=== PATIENT | female | born 1985 | race Caucasian/White ===

== ENCOUNTER → 2016-07-12 | Outpatient (CLI) | payer OTHER ==
[~2016-07-12] MED LIST: ASPIRIN 81M81 MG/TA2 PO; HUMALOG100 U/ML SC; LANTUS100 U/ML; LANTUS100 U/ML SQ; MAG-OX 400400 MG/TAB PO; NOVLOG SQ; PRINIVIL10 MG PO; PRINIVIL2.5 MG PO; TOPROL XL 25MG25 MG PO; TOPROL XL 50MG50 MG PO
== END ==
LOC: ZLAB.FHCC 11:45
DX: L65.9 Nonscarring hair loss, unspecified (principal)

== ENCOUNTER → 2016-08-30 | Outpatient (CLI) | payer SELFPAY ==
[2016-08-30 12:02] LABS: HEMATOCRIT 43.5 % (37.0-47.0); HEMOGLOBIN 14.9 g/dl (12.5-16.0)
[2016-08-30 12:15] LABS: ADJUSTED CALCIUM 9.2 mg/dL (8.4-10.2); ALBUMIN 4.1 gm/dL (3.5-5.0); BILIRUBIN,TOTAL 0.8 mg/dL (0.0-1.0); CALCIUM 9.3 mg/dL (8.4-10.2); CREATININE, serum 0.62 mg/dL (0.52-1.25); TOTAL PROTEIN 7.1 gm/dL (6.4-8.2)
== END ==
LOC: COL.LAB 11:03
DX: E10.9 Type 1 diabetes mellitus without complications (principal)

== ENCOUNTER 2017-04-11 10:16 | Emergency (ER) | payer BC ==
[~2017-04-11] VITALS: Ht 165.1 cm; Wt 56.8 kg
[~2017-04-11 10:16] MED LIST changes: +DEPO-PROVE150 MG/1 M IM; +LEVEMIR100 U/ML SQ
[2017-04-11 10:19] VITALS: TEMP 98.3
[2017-04-11 10:53] LABS: BASO # 0.1 (0.0-0.2); BASO % 0.4 % (0.0-2.0); EOS # 0.1 (0.0-0.7); EOS % 0.9 % (0-4.0); GRAN # 10.5 (1.4-6.5); GRAN % 76.6 % (42.2-75.2); LYMPH # 2.1 (1.2-3.4); LYMPH % 15.1 % (20.0-51.0); MEAN CELL VOLUME 88 fl (80.0-100.0); MEAN CORPUSCULAR HGB CONC 33 g/dl (33.0-37.0); MEAN PLATELET VOLUME 9.8 fl (7.4-10.4); MONO # 0.9 (0.1-0.6); MONO % 6.5 % (1.7-9.3); PLATELET COUNT 339 K/mm3 (130-400); RED BLOOD COUNT 3.76 M/mm3 (4.10-5.30); WHITE BLOOD COUNT 13.8 K/mm3 (4.8-10.8)
[2017-04-11 10:56] LABS: HEMATOCRIT 32.9 % (37.0-47.0); HEMOGLOBIN 10.8 g/dl (12.5-16.0); MEAN CORPUSCULAR HEMOGLOBIN 29 pg (27.0-31.0)
[2017-04-11 11:02] LABS: ADJUSTED CALCIUM 9.2 mg/dL (8.4-10.2); ALBUMIN 4.1 gm/dL (3.5-5.0); BILIRUBIN,TOTAL 0.5 mg/dL (0.0-1.0); CALCIUM 9.3 mg/dL (8.4-10.2); CREATININE, serum 0.6 mg/dL (0.52-1.25); POTASSIUM 3.1 mmol/L (3.4-5.0)
[2017-04-11] MEDS ORDERED: ALBUTEROL0.83 MG/ML IH (11:24)
[2017-04-11] MEDS ORDERED: NOXAFIL PO (11:24)
[2017-04-11 15:28] VITALS: BP 180/101; PULSE 95
== END 2017-04-11 16:17 | disposition home or self-care (01) ==
LOC: COL.ER 10:16
PROVIDERS: Emergency Medicine
DX: Z43.0 Encounter for attention to tracheostomy (principal); R06.02 Shortness of breath; E10.9 Type 1 diabetes mellitus without complications
CPT/HCPCS: J1100; J7030

== ENCOUNTER → 2017-06-27 | Outpatient (CLI) | payer BC ==
[~2017-06-27] MED LIST changes: +ALBUTEROL0.83 MG/ML IH; +NOXAFIL PO
== END ==
LOC: COL.RAD 11:51
DX: R14.0 Abdominal distension (gaseous) (principal); R16.1 Splenomegaly, not elsewhere classified; R93.8 Abnormal findings on diagnostic imaging of other specified body structures

== ENCOUNTER → 2017-07-04 | Outpatient (CLI) | payer BC | LOC: COL.RAD 05:59 | DX: R14.0 Abdominal distension (gaseous) (principal); R10.9 Unspecified abdominal pain; R11.2 Nausea with vomiting, unspecified | CPT/HCPCS: A9541 ==

== ENCOUNTER 2017-07-07 14:28 | Emergency (ER) | payer BC ==
[~2017-07-07] VITALS: Ht 165.1 cm; Wt 62.7 kg
[2017-07-07 14:30] VITALS: BP 103/72
[2017-07-07] MEDS ORDERED: MONODOX100 PO (14:51)
[2017-07-07] MEDS ORDERED: PRIL40 PO (14:52)
[2017-07-07] MEDS ORDERED: VALU-DRYL ALLER25 MG PO (14:52)
[2017-07-07] MEDS ORDERED: LOPRESSOR 550 MG/TAB PO (14:52)
[2017-07-07] MEDS ORDERED: NOXAFIL PO (14:54)
[2017-07-07 15:09] LABS: BASO # 0.1 (0.0-0.2); BASO % 0.3 % (0.0-2.0); EOS % 0.1 % (0-4.0); GRAN # 14.5 (1.4-6.5); GRAN % 82.3 % (42.2-75.2); LYMPH # 1.9 (1.2-3.4); LYMPH % 10.5 % (20.0-51.0); MEAN CELL VOLUME 82 fl (80.0-100.0); MEAN CORPUSCULAR HGB CONC 32 g/dl (33.0-37.0); MEAN PLATELET VOLUME 9.5 fl (7.4-10.4); MONO # 1.1 (0.1-0.6); MONO % 6.2 % (1.7-9.3); PLATELET COUNT 369 K/mm3 (130-400); RED BLOOD COUNT 4.36 M/mm3 (4.10-5.30); REDCELL DISTRIBUTION WIDTH-CV 14.2 % (11.5-14.5)
[2017-07-07 15:14] LABS: ALBUMIN 3.7 gm/dL (3.5-5.0); BILIRUBIN,TOTAL 0.5 mg/dL (0.0-1.0); CALCIUM 9.4 mg/dL (8.4-10.2); CREATININE, serum 0.7 mg/dL (0.52-1.25); POTASSIUM 4.5 mmol/L (3.4-5.0); TOTAL PROTEIN 7.3 gm/dL (6.4-8.2)
[2017-07-07 15:21] LABS: HEMATOCRIT 35.8 % (37.0-47.0); HEMOGLOBIN 11.3 g/dl (12.5-16.0); MEAN CORPUSCULAR HEMOGLOBIN 26 pg (27.0-31.0)
[2017-07-07 18:01] VITALS: PULSE 98
== END 2017-07-07 18:00 | disposition short-term general hospital (02) ==
LOC: COL.ER 14:28
PROVIDERS: Family Medicine
DX: J18.1 Lobar pneumonia, unspecified organism (principal); J96.00 Acute respiratory failure, unspecified whether with hypoxia or hypercapnia; Z79.4 Long term (current) use of insulin
CPT/HCPCS: J1100; J1956; J2543; J7030

== ENCOUNTER 2017-11-05 08:39 | Inpatient (IN) | payer BC ==
[~2017-11-05] VITALS: Ht 165.1 cm; Wt 57.7 kg
[2017-11-05] VITALS (476 sets, daily range): BP systolic 142–179; BP diastolic 86–109; PULSE 97–111; TEMP 98.2–98.9; O2SAT 81–100
[~2017-11-05 08:39] MED LIST changes: +LOPRESSOR 550 MG/TAB PO; +MONODOX100 PO; +PRIL40 PO; +VALU-DRYL ALLER25 MG PO
[2017-11-05 09:00] LABS: HEMATOCRIT 41.5 % (37.0-47.0); MEAN CELL VOLUME 82 fl (80.0-100.0); MEAN CORPUSCULAR HEMOGLOBIN 28 pg (27.0-31.0); MEAN CORPUSCULAR HGB CONC 34 g/dl (33.0-37.0); MEAN PLATELET VOLUME 9.5 fl (7.4-10.4); PLATELET COUNT 345 K/mm3 (130-400); RED BLOOD COUNT 5.04 M/mm3 (4.10-5.30); REDCELL DISTRIBUTION WIDTH-CV 13.6 % (11.5-14.5)
[2017-11-05 09:08] LABS: ALANINE AMINOTRANSFERASE 17 U/L (9-52); ALKALINE PHOSPHATASE 136 U/L (50-136); ANION GAP 26 mmol/L (7-16); AST,SGOT 21 U/L (15-37); BILIRUBIN,TOTAL 0.8 mg/dL (0.0-1.0); BLOOD UREA NITROGEN 43 mg/dL (7-17); CALCIUM 10.1 mg/dL (8.4-10.2); CARBON DIOXIDE 23 mmol/L (22-30); CREATININE, serum 0.89 mg/dL (0.52-1.25); POTASSIUM 4.2 mmol/L (3.4-5.0); SODIUM 131 mmol/L (137-145); TOTAL PROTEIN 8.4 gm/dL (6.4-8.2)
[2017-11-05 09:20] LABS: CHLORIDE 82 mmol/L (98-107); GLUCOSE 472 mg/dL (74-106)
[2017-11-05 09:31] LABS: ACETONE,SERUM LARGE
[2017-11-05 10:58] LABS: BAND 12 % (0-10); LYMPHOCYTE 12 % (20.0-51.0); NEUTROPHILS 76 % (42.0-75.2); PLATELET ESTIMATE NORMAL (NORMAL)
[2017-11-05 13:04] LABS: MAGNESIUM 2.4 mg/dL (1.6-2.3); PHOSPHOROUS 4.9 mg/dL (2.5-4.5)
[2017-11-05] MEDS ORDERED: PRINIVIL5 MG PO (13:07)
[2017-11-05 14:58] LABS: COLLECTION METHOD CLEAN CATCH
[2017-11-05 15:08] LABS: MUCOUS Present /lpf; PH 5 (5-8); SQUAMOUS EPITHELIAL 0-2 /hpf; URINE APPEARANCE Clear; URINE BACTERIA Rare /hpf; URINE BILIRUBIN Negative (NEGATIVE); URINE BLOOD Negative (NEGATIVE); URINE COLOR Yellow; URINE GLUCOSE 3+ (NEGATIVE); URINE KETONE 2+ (NEGATIVE); URINE LEUKOCYTE ESTERASE Negative (NEGATIVE); URINE NITRATE Negative (NEGATIVE); URINE PROTEIN(semi-quant) 2+ (NEGATIVE); URINE RBC 0-2 /hpf; URINE UROBILINOGEN Negative (NEGATIVE)
[2017-11-05 15:20] LABS: TRICYCLIC ANTIDEPRESS URINE NEGATIVE
[2017-11-05 16:30] LABS: ALBUMIN 4.1 gm/dL (3.5-5.0); BILIRUBIN,TOTAL 0.6 mg/dL (0.0-1.0); C-REACTIVE PROTEIN 1.4 mg/dL (0.0-0.9); CALCIUM 9.2 mg/dL (8.4-10.2); CREATININE, serum 0.67 mg/dL (0.52-1.25); POTASSIUM 3.5 mmol/L (3.4-5.0)
[2017-11-05 19:07] LABS: CALCIUM 8.9 mg/dL (8.4-10.2); CREATININE, serum 0.58 mg/dL (0.52-1.25); POTASSIUM 3.5 mmol/L (3.4-5.0)
[2017-11-05 20:28] LABS: ALCOHOL(ethanol),MEDICAL < 10 mg/dL
[2017-11-05 20:35] LABS: CREATININE, serum 0.61 mg/dL (0.52-1.25)
[2017-11-06] VITALS (846 sets, daily range): BP systolic 150–184; BP diastolic 88–105; PULSE 90–99; TEMP 97.9–98.9; O2SAT 95–100
[2017-11-06 00:38] LABS: CALCIUM 8.8 mg/dL (8.4-10.2); CREATININE, serum 0.57 mg/dL (0.52-1.25); POTASSIUM 3.8 mmol/L (3.4-5.0)
[2017-11-06 02:48] LABS: CALCIUM 8.9 mg/dL (8.4-10.2); CREATININE, serum 0.54 mg/dL (0.52-1.25); POTASSIUM 3.4 mmol/L (3.4-5.0)
[2017-11-06 05:08] LABS: BASO % 0.2 % (0.0-2.0); GRAN # 12.3 (1.4-6.5); GRAN % 84.5 % (42.2-75.2); HEMOGLOBIN 12.5 g/dl (12.5-16.0); LYMPH # 0.9 (1.2-3.4); LYMPH % 6.2 % (20.0-51.0); MEAN CELL VOLUME 81 fl (80.0-100.0); MEAN CORPUSCULAR HEMOGLOBIN 28 pg (27.0-31.0); MEAN CORPUSCULAR HGB CONC 34 g/dl (33.0-37.0); MEAN PLATELET VOLUME 9.3 fl (7.4-10.4); MONO # 1.2 (0.1-0.6); MONO % 8.5 % (1.7-9.3); PLATELET COUNT 251 K/mm3 (130-400); RED BLOOD COUNT 4.48 M/mm3 (4.10-5.30); REDCELL DISTRIBUTION WIDTH-CV 13.2 % (11.5-14.5)
[2017-11-06 05:14] LABS: HEMATOCRIT 36.4 % (37.0-47.0)
[2017-11-06 05:17] LABS: CALCIUM 8.8 mg/dL (8.4-10.2); CREATININE, serum 0.5 mg/dL (0.52-1.25); POTASSIUM 3.4 mmol/L (3.4-5.0)
[2017-11-06 07:36] LABS: CALCIUM 8.8 mg/dL (8.4-10.2); CREATININE, serum 0.47 mg/dL (0.52-1.25); POTASSIUM 3.4 mmol/L (3.4-5.0)
[2017-11-06 09:23] LABS: CALCIUM 8.9 mg/dL (8.4-10.2); CREATININE, serum 0.45 mg/dL (0.52-1.25); POTASSIUM 3.4 mmol/L (3.4-5.0)
[2017-11-07] VITALS (434 sets, daily range): BP systolic 94–180; BP diastolic 65–114; PULSE 89–98; TEMP 97.5–97.9; O2SAT 94–100
[2017-11-07 06:03] LABS: BASO % 0.2 % (0.0-2.0); EOS % 0.4 % (0-4.0); GRAN # 6.1 (1.4-6.5); GRAN % 70.9 % (42.2-75.2); LYMPH # 1.6 (1.2-3.4); LYMPH % 18.8 % (20.0-51.0); MEAN CELL VOLUME 81 fl (80.0-100.0); MEAN CORPUSCULAR HEMOGLOBIN 27 pg (27.0-31.0); MEAN CORPUSCULAR HGB CONC 34 g/dl (33.0-37.0); MEAN PLATELET VOLUME 9.3 fl (7.4-10.4); MONO # 0.8 (0.1-0.6); MONO % 9.1 % (1.7-9.3); PLATELET COUNT 248 K/mm3 (130-400); RED BLOOD COUNT 4.41 M/mm3 (4.10-5.30); REDCELL DISTRIBUTION WIDTH-CV 12.7 % (11.5-14.5)
[2017-11-07 06:06] LABS: HEMATOCRIT 35.7 % (37.0-47.0)
[2017-11-07 06:12] LABS: CALCIUM 8.8 mg/dL (8.4-10.2); CREATININE, serum 0.43 mg/dL (0.52-1.25); POTASSIUM 3.1 mmol/L (3.4-5.0)
[2017-11-08] VITALS (561 sets, daily range): BP systolic 135–178; BP diastolic 85–103; PULSE 89–106; TEMP 97.6–98.7; O2SAT 77–100
[2017-11-08 09:09] LABS: BASO % 0.3 % (0.0-2.0); EOS % 0.5 % (0-4.0); GRAN # 5.4 (1.4-6.5); HEMOGLOBIN 12.7 g/dl (12.5-16.0); LYMPH # 1.7 (1.2-3.4); LYMPH % 22.3 % (20.0-51.0); MEAN CELL VOLUME 80 fl (80.0-100.0); MEAN CORPUSCULAR HEMOGLOBIN 28 pg (27.0-31.0); MEAN CORPUSCULAR HGB CONC 35 g/dl (33.0-37.0); MONO # 0.5 (0.1-0.6); MONO % 6.7 % (1.7-9.3); PLATELET COUNT 240 K/mm3 (130-400); RED BLOOD COUNT 4.56 M/mm3 (4.10-5.30); REDCELL DISTRIBUTION WIDTH-CV 12.6 % (11.5-14.5)
[2017-11-08 09:10] LABS: HEMATOCRIT 36.5 % (37.0-47.0)
[2017-11-08 09:20] LABS: ALBUMIN 3.6 gm/dL (3.5-5.0); BILIRUBIN UNCONJUGATED 0.3 mg/dL (0.0-1.1); BILIRUBIN,DIRECT 0.3 mg/dL (0.0-0.4); BILIRUBIN,TOTAL 0.6 mg/dL (0.0-1.0); CREATININE, serum 0.55 mg/dL (0.52-1.25); POTASSIUM 3.3 mmol/L (3.4-5.0); TOTAL PROTEIN 6.5 gm/dL (6.4-8.2)
[2017-11-09] VITALS (9 sets, daily range): BP systolic 135–220; BP diastolic 55–114; PULSE 74–106; TEMP 97–99.4
[2017-11-09 09:05] LABS: MEAN CELL VOLUME 81 fl (80.0-100.0); MEAN CORPUSCULAR HEMOGLOBIN 28 pg (27.0-31.0); MEAN CORPUSCULAR HGB CONC 34 g/dl (33.0-37.0); MEAN PLATELET VOLUME 9.7 fl (7.4-10.4); PLATELET COUNT 232 K/mm3 (130-400); RED BLOOD COUNT 4.37 M/mm3 (4.10-5.30); REDCELL DISTRIBUTION WIDTH-CV 12.8 % (11.5-14.5)
[2017-11-09 09:15] LABS: HEMATOCRIT 35.4 % (37.0-47.0)
[2017-11-09 09:22] LABS: CREATININE, serum 0.55 mg/dL (0.52-1.25); POTASSIUM 4.1 mmol/L (3.4-5.0)
[2017-11-09 10:07] LABS: BAND 4 % (0-10); LYMPHOCYTE 18 % (20.0-51.0); NEUTROPHILS 68 % (42.0-75.2); PLATELET ESTIMATE NORMAL (NORMAL)
[2017-11-09] MEDS ORDERED: AMOXICILLIN 8751 TAB PO (14:13)
[2017-11-09] MEDS ORDERED: LOPRESSOR 225 MG/TAB PO (14:14)
[2017-11-09] MEDS ORDERED: CARAFATE 1GM1 G PO (14:15)
[2017-11-09] MEDS ORDERED: PROTONIX 40MG T40 MG PO (14:15)
== END 2017-11-09 15:34 | disposition home or self-care (01) | DRG 638 ==
LOC: COL.ER 08:39 → ICU 10:57 → MEDICAL 11-08 18:57
PROVIDERS: Hospitalist; Internal Medicine Gastroenterology; Nurse Practitioner Primary Care; Physician Assistant
PROC: 0DB68ZX Excision of Stomach, Via Natural or Artificial Opening Endoscopic, Diagnostic (ICD-10-PCS; principal; 2017-11-09 07:30)
DX: E10.10 Type 1 diabetes mellitus with ketoacidosis without coma (principal); E87.1 Hypo-osmolality and hyponatremia; L03.031 Cellulitis of right toe; K29.00 Acute gastritis without bleeding; E87.6 Hypokalemia; K21.0 Gastro-esophageal reflux disease with esophagitis; K29.30 Chronic superficial gastritis without bleeding; I10 Essential (primary) hypertension; Z79.4 Long term (current) use of insulin; J39.8 Other specified diseases of upper respiratory tract; F17.210 Nicotine dependence, cigarettes, uncomplicated; B95.2 Enterococcus as the cause of diseases classified elsewhere; B95.61 Methicillin susceptible Staphylococcus aureus infection as the cause of diseases classified elsewhere
CPT/HCPCS: 99223-AI; 99233-AI; 99239; C9113; J0360; J1200; J1644; J1815; J2405; J2543; J2550; J2704; J2765; J3370; J3480; J7030; J7050; J7070

== ENCOUNTER → 2017-11-21 | Outpatient (CLI) | payer BC ==
[~2017-11-21] MED LIST changes: +AMOXICILLIN 8751 TAB PO; +CARAFATE 1GM1 G PO; +LOPRESSOR 225 MG/TAB PO; +PRINIVIL5 MG PO; +PROTONIX 40MG T40 MG PO
== END ==
LOC: COL.RAD 15:57
DX: R05 Cough (principal); Z98.890 Other specified postprocedural states

== ENCOUNTER → 2018-06-19 | Outpatient (CLI) | payer BC | LOC: COL.RAD 12:03 | DX: E10.319 Type 1 diabetes mellitus with unspecified diabetic retinopathy without macular edema (principal); Z87.01 Personal history of pneumonia (recurrent) ==

== ENCOUNTER → 2018-10-12 | Outpatient (CLI) | payer BC ==
[2018-10-12 09:35] LABS: BASO % 0.4 % (0.0-2.0); EOS # 0.1 (0.0-0.7); EOS % 1.7 % (0-4.0); GRAN # 4.6 (1.4-6.5); GRAN % 56.2 % (42.2-75.2); HEMATOCRIT 31.8 % (37.0-47.0); HEMOGLOBIN 10.3 g/dl (12.5-16.0); LYMPH # 2.7 (1.2-3.4); LYMPH % 33.8 % (20.0-51.0); MEAN CELL VOLUME 88 fl (80.0-100.0); MEAN CORPUSCULAR HEMOGLOBIN 29 pg (27.0-31.0); MEAN CORPUSCULAR HGB CONC 32 g/dl (33.0-37.0); MEAN PLATELET VOLUME 9.2 fl (7.4-10.4); MONO # 0.6 (0.1-0.6); MONO % 7.5 % (1.7-9.3); PLATELET COUNT 212 K/mm3 (130-400); RED BLOOD COUNT 3.61 M/mm3 (4.10-5.30); REDCELL DISTRIBUTION WIDTH-CV 13.1 % (11.5-14.5)
== END ==
LOC: COL.RAD 08:55
PROVIDERS: Registered Nurse
DX: S92.911A Unspecified fracture of right toe(s), initial encounter for closed fracture (principal); E10.319 Type 1 diabetes mellitus with unspecified diabetic retinopathy without macular edema

== ENCOUNTER → 2018-12-27 | Outpatient (CLI) | payer BC ==
[2018-12-27 11:11] LABS: BASO # 0.1 (0.0-0.2); BASO % 0.5 % (0.0-2.0); EOS # 0.1 (0.0-0.7); EOS % 0.5 % (0-4.0); GRAN # 7.7 (1.4-6.5); GRAN % 70.1 % (42.2-75.2); HEMOGLOBIN 10.3 g/dl (12.5-16.0); LYMPH # 2.3 (1.2-3.4); LYMPH % 21.1 % (20.0-51.0); MEAN CELL VOLUME 87 fl (80.0-100.0); MEAN CORPUSCULAR HEMOGLOBIN 28 pg (27.0-31.0); MEAN CORPUSCULAR HGB CONC 32 g/dl (33.0-37.0); MONO # 0.7 (0.1-0.6); MONO % 6.6 % (1.7-9.3); PLATELET COUNT 316 K/mm3 (130-400); RED BLOOD COUNT 3.67 M/mm3 (4.10-5.30); REDCELL DISTRIBUTION WIDTH-CV 12.7 % (11.5-14.5)
[2018-12-27 11:16] LABS: HEMATOCRIT 31.9 % (37.0-47.0)
== END ==
LOC: COL.RAD 10:29
PROVIDERS: Registered Nurse
DX: E10.319 Type 1 diabetes mellitus with unspecified diabetic retinopathy without macular edema (principal); L03.031 Cellulitis of right toe

== ENCOUNTER → 2020-03-30 | Outpatient (CLI) | payer BC ==
[~2020-03-30] MED LIST changes: +CIPRO 500MG TA500 MG PO; +NOVOLOG FLEX100 U/ML SQ
== END ==
LOC: MC.RAD 10:30
DX: N63.21 Unspecified lump in the left breast, upper outer quadrant (principal)

== ENCOUNTER → 2020-04-13 | Outpatient (CLI) | payer BC | LOC: MC.RAD 09:50 | DX: N60.32 Fibrosclerosis of left breast (principal); Z98.82 Breast implant status ==

== ENCOUNTER 2020-07-09 09:00 | Inpatient (IN) | payer BC ==
[2020-07-09] VITALS (440 sets, daily range): BP systolic 128–130; BP diastolic 73–74; PULSE 109–113; TEMP 97.8–100; O2SAT 70–100
[~2020-07-09] VITALS: Ht 165.1 cm; Wt 60.8 kg
[2020-07-09 09:35] LABS: HEMATOCRIT 39.1 % (37.0-47.0); HEMOGLOBIN 12.3 g/dl (12.5-16.0); MEAN CELL VOLUME 95 fl (80.0-100.0); MEAN CORPUSCULAR HEMOGLOBIN 30 pg (27.0-31.0); MEAN CORPUSCULAR HGB CONC 32 g/dl (33.0-37.0); MEAN PLATELET VOLUME 9.7 fl (7.4-10.4); PLATELET COUNT 501 K/mm3 (130-400); REDCELL DISTRIBUTION WIDTH-CV 12.4 % (11.5-14.5)
[2020-07-09 09:38] LABS: PROTHROMBIN TIME 11.3 SECONDS (9.7-12.8)
[2020-07-09 09:46] LABS: ALANINE AMINOTRANSFERASE 22 U/L (4-34); ALBUMIN 4.3 gm/dL (3.5-5.0); ALKALINE PHOSPHATASE 176 U/L (50-136); AST,SGOT 27 U/L (15-37); BILIRUBIN,TOTAL 0.1 mg/dL (0.0-1.0); BLOOD UREA NITROGEN 39 mg/dL (7-17); CALCIUM 9.7 mg/dL (8.4-10.2); CHLORIDE 100 mmol/L (98-107); CREATININE, serum 1.82 (0.52-1.25); LIPASE 145 U/L (23-300); POTASSIUM 5.3 mmol/L (3.4-5.0); SODIUM 135 mmol/L (137-145); TOTAL PROTEIN 7.8 gm/dL (6.4-8.2)
[2020-07-09 09:49] LABS: ACETONE,SERUM MODERATE
[2020-07-09 09:55] LABS: CARBON DIOXIDE < 5 mmol/L (22-30)
[2020-07-09 09:56] LABS: GLUCOSE 680 mg/dL (74-106)
[2020-07-09 09:57] LABS: TROPONIN-I < 0.012 ng/mL (0.000-0.035)
[2020-07-09 10:12] LABS: BAND 2 % (0-10); HYPOCHROMIA 2+; LYMPHOCYTE 24 % (20.0-51.0); NEUTROPHILS 73 % (42.0-75.2); PLATELET ESTIMATE INCREASED (NORMAL)
[2020-07-09 10:28] LABS: ARTERIAL BLD GAS O2 SATURATION 97.6 % (92-100); ARTERIAL BLOOD GAS BASE EXCESS -25.3 (-2-2); ARTERIAL BLOOD GAS HCO3 3.5 meq/L (22-26)
[2020-07-09 10:29] LABS: ARTERIAL BLOOD GAS PCO2 13.7 mmHg (35-45); ARTERIAL BLOOD GAS PO2 138.5 mmHg (80-100); ARTERIAL BLOOD GAS pH 7.03 (7.35-7.45)
[2020-07-09 12:00] LABS: BLOOD UREA NITROGEN 39 mg/dL (7-17); CALCIUM 9.1 mg/dL (8.4-10.2); CHLORIDE 105 mmol/L (98-107); CREATININE, serum 1.65 (0.52-1.25); SODIUM 137 mmol/L (137-145)
[2020-07-09 12:47] LABS: CARBON DIOXIDE < 5 mmol/L (22-30); GLUCOSE 497 mg/dL (74-106)
--- NOTE | 2020-07-09 12:48 | NUR ---
RECEIVED REPORT FROM ALLEN PEREZ IN ER. AWAITING ARRIVAL OF PT TO ICU 4.
--- NOTE | 2020-07-09 13:05 | NUR ---
PT ARRIVES TO ICU 4. TRANSFERS SELF TO ICU BED. PLACED ON BEDSIDE COTNINUOUS MONITOR. VSS. CALL LIGHT WITHIN REACH. WARM BLANKET PROVIDED. SEE GTT FLOWSHEET.
[2020-07-09 14:44] LABS: CALCIUM 8.7 mg/dL (8.4-10.2); CREATININE, serum 1.44 (0.52-1.25); POTASSIUM 4.5 mmol/L (3.4-5.0)
[2020-07-09 16:48] LABS: CALCIUM 8.8 mg/dL (8.4-10.2); CREATININE, serum 1.41 (0.52-1.25); POTASSIUM 4.1 mmol/L (3.4-5.0)
--- NOTE | 2020-07-09 18:30 | NUR ---
ATTEMPTED TO WAKE PT UP FULLY TO ASK HER IF SHE NEEDED TO VOID. PT MOANS AND ROLLS BACK OVER TO SLEEP.
[2020-07-09 18:53] LABS: CALCIUM 8.6 mg/dL (8.4-10.2); CREATININE, serum 1.2 (0.52-1.25); POTASSIUM 4.3 mmol/L (3.4-5.0)
--- NOTE | 2020-07-09 20:08 | NUR ---
Patient assessment complete and charted. Insulin gtt continued per protocol. Patient drowsy- only answering yes no questions. Follows commands. Call light in reach.
[2020-07-09 20:52] LABS: CALCIUM 8.6 mg/dL (8.4-10.2); CREATININE, serum 1.15 (0.52-1.25); POTASSIUM 4.2 mmol/L (3.4-5.0)
--- NOTE | 2020-07-09 21:56 | NUR ---
Patient last BG 101. Held insulin spoke with Jennifer GUTIERREZ. Okay to discontinue insulin gtt and start levemir BID and novolog sliding scale. Allow patient to drink/eat. Attempted to obtain urine sample. Patient had stool present in specimen container. Will attempt at later time. Patient steady with ambulation to restroom. Resting back in bed at this time.
[2020-07-09 22:29] LABS: CALCIUM 8.6 mg/dL (8.4-10.2); CREATININE, serum 1.13 (0.52-1.25); POTASSIUM 4.1 mmol/L (3.4-5.0)
--- NOTE | 2020-07-09 23:43 | NUR ---
Assessment complete and charted. Patient denies needs at this time
[2020-07-10] VITALS (577 sets, daily range): BP systolic 116–139; BP diastolic 72–94; PULSE 101–109; TEMP 97.3–99.4; O2SAT 88–100
--- NOTE | 2020-07-10 04:00 | NUR ---
Assessment complete and charted. Denies needs at this time. Call light in reach.
[2020-07-10 05:43] LABS: CALCIUM 8.2 mg/dL (8.4-10.2)
--- NOTE | 2020-07-10 06:16 | NUR ---
Patient had uneventful night. Insulin gtt discontinued earlier in shift. Resting in bed this AM. Call light in reach.
--- NOTE | 2020-07-10 07:00 | NUR ---
Report received from ALLEN Gomes
[2020-07-10 07:20] LABS: COLLECTION METHOD CLEAN CATCH
--- NOTE | 2020-07-10 07:20 | NUR ---
Report given to ALLEN Del Rio
[2020-07-10 07:41] LABS: TRICYCLIC ANTIDEPRESS URINE NEGATIVE
[2020-07-10 07:53] LABS: MUCOUS Present /lpf; PH 6 (5-8); URINE APPEARANCE Cloudy; URINE BACTERIA Occasional /hpf; URINE BILIRUBIN Negative (NEGATIVE); URINE BLOOD Negative (NEGATIVE); URINE COLOR Yellow; URINE GLUCOSE 3+ (NEGATIVE); URINE KETONE 1+ (NEGATIVE); URINE LEUKOCYTE ESTERASE 3+ (NEGATIVE); URINE NITRATE Negative (NEGATIVE); URINE PROTEIN(semi-quant) 2+ (NEGATIVE); URINE UROBILINOGEN Negative (NEGATIVE)
--- NOTE | 2020-07-10 13:20 | NUR ---
Patient arrived to floor from ICU via wheelchair. Patient is alert and oriented, answers questions appropriately. Patient oriented to room and call light, bed alarm on. Denies further needs.
--- NOTE | 2020-07-10 18:37 | NUR ---
Patient resting in bed finishing dinner at this time. Patient denies pain or needs, call light within reach.
--- NOTE | 2020-07-10 20:15 | NUR ---
PT IN BED. KEEPS EYES CLOSED WHEN SPEAKING WITH STAFF. IS ALERT AND ORIENTED X4. HAS SL TO RIGHT AND LEFT AC, FLUSHED BOTH. INDEPENDENT IN ROOM. DENIES NEEDS.
[2020-07-11] VITALS: BP 147/85; BP 197/81; PULSE 96; TEMP 97.6
--- NOTE | 2020-07-11 00:05 | NUR ---
MEDICATED WITH NOVOLOG 4 UNITS FOR RP=728. PT DENIES NEEDS AT THIS TIME.
[2020-07-11 03:51] VITALS: BP 139/78; PULSE 101; TEMP 98
--- NOTE | 2020-07-11 04:45 | NUR ---
BS=93. NO INSULIN NEEDED.
[2020-07-11 07:01] LABS: BASO % 0.4 % (0.0-2.0); EOS # 0.2 (0.0-0.7); EOS % 1.8 % (0-4.0); GRAN # 3.9 (1.4-6.5); GRAN % 48.3 % (42.2-75.2); HEMATOCRIT 31.8 % (37.0-47.0); HEMOGLOBIN 10.2 g/dl (12.5-16.0); LYMPH # 3.5 (1.2-3.4); LYMPH % 42.5 % (20.0-51.0); MEAN CELL VOLUME 91 fl (80.0-100.0); MEAN CORPUSCULAR HEMOGLOBIN 29 pg (27.0-31.0); MEAN CORPUSCULAR HGB CONC 32 g/dl (33.0-37.0); MEAN PLATELET VOLUME 9.2 fl (7.4-10.4); MONO # 0.5 (0.1-0.6); MONO % 6.4 % (1.7-9.3); RED BLOOD COUNT 3.48 M/mm3 (4.10-5.30); REDCELL DISTRIBUTION WIDTH-CV 13.2 % (11.5-14.5)
[2020-07-11 07:03] LABS: PLATELET COUNT 270 K/mm3 (130-400)
[2020-07-11 07:09] LABS: ALANINE AMINOTRANSFERASE 14 U/L (4-34); ALBUMIN 2.8 gm/dL (3.5-5.0); ALKALINE PHOSPHATASE 115 U/L (50-136); ANION GAP 7 mmol/L (7-16); AST,SGOT 25 U/L (15-37); BILIRUBIN,TOTAL < 0.1 mg/dL (0.0-1.0); BLOOD UREA NITROGEN 15 mg/dL (7-17); CALCIUM 8.5 mg/dL (8.4-10.2); CARBON DIOXIDE 20 mmol/L (22-30); CHLORIDE 110 mmol/L (98-107); CREATININE, serum 0.81 (0.52-1.25); GLUCOSE 90 mg/dL (74-106); MAGNESIUM 2.1 mg/dL (1.6-2.3); POTASSIUM 3.6 mmol/L (3.4-5.0); SODIUM 137 mmol/L (137-145); TOTAL PROTEIN 5.6 gm/dL (6.4-8.2)
[2020-07-11 07:38] VITALS: BP 150/93; PULSE 95; TEMP 98.2
--- NOTE | 2020-07-11 09:02 | NUR ---
Patient is alert and oriented, sitting up in bed. Pt is calm and cooperative. Pt denies any pain at this time. Patient has thin hair on head. Pt was eating breakfast.
--- NOTE | 2020-07-11 09:32 | NUR ---
Patient alert and oriented, answers questions appropriately. See assessment. Continue to monitor blood glucose, no s/s DKA. No c/o at this time.
[2020-07-11 11:49] VITALS: BP 157/98; PULSE 102; TEMP 98.1
--- NOTE | 2020-07-11 14:10 | NUR ---
Discharge instructions reviewed with patient, verbalized understanding. Discharged ambulatory to auto/home with family at 1410.
--- NOTE | 2020-07-11 16:37 | NUR ---
Plan to return home with support from her father Jovi . SW met with patiet about plan to [place]. Patient reports PCP is Leidy Basurto, uses [facility] without difficulty. Patient reports that she has transportation and no DME needs. Denies any need for skilled services or other social supports. SW educated on services. NF.
== END 2020-07-11 14:10 | disposition home or self-care (01) | DRG 637 ==
LOC: COL.ER 09:00 → ICU 11:19 → JCC 07-10 12:24
PROVIDERS: Emergency Medicine; Physician Assistant
DX: E10.10 Type 1 diabetes mellitus with ketoacidosis without coma (principal); G93.41 Metabolic encephalopathy; N17.9 Acute kidney failure, unspecified; D47.3 Essential (hemorrhagic) thrombocythemia; F19.10 Other psychoactive substance abuse, uncomplicated; E87.5 Hyperkalemia; Z20.822 Contact with and (suspected) exposure to COVID-19; F17.210 Nicotine dependence, cigarettes, uncomplicated; Z79.02 Long term (current) use of antithrombotics/antiplatelets; Z86.718 Personal history of other venous thrombosis and embolism
CPT/HCPCS: 99223-AI; 99233-AI; 99239; J0696; J1815; J3480; J7030

== ENCOUNTER 2020-07-13 18:01 | Emergency (ER) | payer BC ==
[~2020-07-13] VITALS: Ht 165.1 cm; Wt 63.6 kg
[2020-07-13 18:18] LABS: BASO # 0.1 (0.0-0.2); BASO % 0.7 % (0.0-2.0); EOS # 0.3 (0.0-0.7); EOS % 2.9 % (0-4.0); GRAN # 5.4 (1.4-6.5); GRAN % 59.3 % (42.2-75.2); HEMOGLOBIN 10.1 g/dl (12.5-16.0); LYMPH # 2.6 (1.2-3.4); LYMPH % 28.5 % (20.0-51.0); MEAN CELL VOLUME 90 fl (80.0-100.0); MEAN CORPUSCULAR HEMOGLOBIN 30 pg (27.0-31.0); MEAN CORPUSCULAR HGB CONC 33 g/dl (33.0-37.0); MEAN PLATELET VOLUME 9.3 fl (7.4-10.4); MONO # 0.8 (0.1-0.6); MONO % 8.2 % (1.7-9.3); PLATELET COUNT 244 K/mm3 (130-400); REDCELL DISTRIBUTION WIDTH-CV 12.5 % (11.5-14.5)
[2020-07-13 18:25] LABS: COLLECTION METHOD CATHETER
[2020-07-13 18:28] LABS: HEMATOCRIT 30.6 % (37.0-47.0)
[2020-07-13 18:35] LABS: PH 6 (5-8); SQUAMOUS EPITHELIAL 0-2 /hpf; URINE APPEARANCE Clear; URINE BACTERIA None Seen /hpf; URINE BILIRUBIN Negative (NEGATIVE); URINE BLOOD Negative (NEGATIVE); URINE COLOR Straw; URINE GLUCOSE 3+ (NEGATIVE); URINE KETONE Negative (NEGATIVE); URINE LEUKOCYTE ESTERASE Negative (NEGATIVE); URINE NITRATE Negative (NEGATIVE); URINE PROTEIN(semi-quant) 2+ (NEGATIVE); URINE RBC 0-2 /hpf; URINE UROBILINOGEN Negative (NEGATIVE)
[2020-07-13 18:40] LABS: ALANINE AMINOTRANSFERASE 15 U/L (4-34); ALBUMIN 3.7 gm/dL (3.5-5.0); ALKALINE PHOSPHATASE 108 U/L (50-136); ANION GAP 11 mmol/L (7-16); AST,SGOT 28 U/L (15-37); BILIRUBIN,TOTAL < 0.1 mg/dL (0.0-1.0); BLOOD UREA NITROGEN 31 mg/dL (7-17); CALCIUM 8.8 mg/dL (8.4-10.2); CARBON DIOXIDE 24 mmol/L (22-30); CHLORIDE 101 mmol/L (98-107); CREATININE, serum 0.87 (0.52-1.25); GLUCOSE 46 mg/dL (74-106); POTASSIUM 3.2 mmol/L (3.4-5.0); SODIUM 136 mmol/L (137-145)
[2020-07-13 18:50] LABS: ALCOHOL(ethanol),MEDICAL < 10 mg/dL
[2020-07-13 19:20] LABS: TRICYCLIC ANTIDEPRESS URINE NEGATIVE
[2020-07-13 22:31] VITALS: BP 156/100; PULSE 100
== END 2020-07-13 23:25 | disposition home or self-care (01) ==
LOC: COL.ER 18:01
PROVIDERS: Nurse Practitioner
DX: E10.649 Type 1 diabetes mellitus with hypoglycemia without coma (principal); F15.10 Other stimulant abuse, uncomplicated; Z79.4 Long term (current) use of insulin
CPT/HCPCS: J7131

== ENCOUNTER 2020-12-17 13:38 | Outpatient (CLI) | payer BC ==
[~2020-12-17] VITALS: Ht 165.1 cm; Wt 65.0 kg
[2020-12-17 13:56] VITALS: BP 123/79; PULSE 114; TEMP 99.1
[2020-12-17 14:15] VITALS: BP 120/69; PULSE 113
[2020-12-17 14:30] VITALS: BP 116/69; PULSE 112
[2020-12-17 15:00] VITALS: BP 114/70; PULSE 108
== END 2020-12-17 15:51 ==
LOC: EUO 13:38
DX: U07.1 COVID-19 (principal); E11.9 Type 2 diabetes mellitus without complications; I25.10 Atherosclerotic heart disease of native coronary artery without angina pectoris
CPT/HCPCS: Q0244

== ENCOUNTER 2020-12-21 15:17 | Inpatient (IN) | payer BC ==
[~2020-12-21] VITALS: Ht 165.1 cm; Wt 68.2 kg
[2020-12-21 16:15] LABS: ALBUMIN 4.1 gm/dL (3.5-5.0); BILIRUBIN,TOTAL 0.4 mg/dL (0.0-1.0); CALCIUM 9.6 mg/dL (8.4-10.2); CREATININE, serum 1.2 (0.52-1.25); POTASSIUM 4.3 mmol/L (3.4-5.0); TOTAL PROTEIN 8.6 gm/dL (6.4-8.2)
[2020-12-21 16:21] LABS: HEMATOCRIT 42.3 % (37.0-47.0); HEMOGLOBIN 13.8 g/dl (12.5-16.0); MEAN CELL VOLUME 86 fl (80.0-100.0); MEAN CORPUSCULAR HEMOGLOBIN 28 pg (27.0-31.0); MEAN CORPUSCULAR HGB CONC 33 g/dl (33.0-37.0); MEAN PLATELET VOLUME 10.1 fl (7.4-10.4); PLATELET COUNT 260 K/mm3 (130-400); RED BLOOD COUNT 4.92 M/mm3 (4.10-5.30); REDCELL DISTRIBUTION WIDTH-CV 12.9 % (11.5-14.5)
[2020-12-21 16:40] LABS: EOSINOPHIL 1 % (0-4); LYMPHOCYTE 35 % (20.0-51.0); NEUTROPHILS 57 % (42.0-75.2)
[2020-12-21 16:41] LABS: PLATELET ESTIMATE NORMAL (NORMAL)
[2020-12-21 20:18] VITALS: BP 137/76; PULSE 95; TEMP 98.2
--- NOTE | 2020-12-21 23:32 | NUR ---
Patient admitted to medical floor room 308 via wheelchair from ER around 8 pm. Patient A/Ox4. Patient denies chest pain, N/V, or diarrhea. Patient currently on 6L oxygen via NC. Brething labored and tachypnic with RR 28. Productive moist cough noted. PRN Robitussin given per JUN. IVF and ABX started per JUN. Oriented patient to the room. Call light in reach. Will continue to monitor.
[2020-12-21 23:58] VITALS: BP 115/85; PULSE 91; TEMP 98.5
[2020-12-22] VITALS (457 sets, daily range): BP systolic 98–148; BP diastolic 42–96; PULSE 86–102; TEMP 97.1–98.7; O2SAT 81–100
[2020-12-22 05:40] LABS: ARTERIAL BLD GAS O2 SATURATION 76.4 % (92-100); ARTERIAL BLD GAS TCO2 CT 22.4; ARTERIAL BLOOD GAS BASE EXCESS -3.5 (-2-2); ARTERIAL BLOOD GAS HCO3 21.2 meq/L (22-26); ARTERIAL BLOOD GAS PCO2 37.5 mmHg (35-45); ARTERIAL BLOOD GAS pH 7.37 (7.35-7.45)
[2020-12-22 05:41] LABS: ARTERIAL BLOOD GAS PO2 43.9 mmHg (80-100)
--- NOTE | 2020-12-22 05:52 | NUR ---
Notified by PCT that patient O2 sat 84% on 6L NC at 05:13 am. Called RT and made Deedee aware. RT applied high flow NC at 15L, but O2 sat remains desats below 90. Airvo applied at this time per RT. SPO2 90% on Airvo 50L/70%.
--- NOTE | 2020-12-22 06:11 | NUR ---
Patient not tolerating Airvo after a while. SPO2 86-87% on Airvo. Patient very anxious. PRN Ativan given per order. RT applied Bipap per order from CHARU Mark. SPO2 92-94% on Bipap 100%. Patient reports feeling comfortable on Bipap at this time. Continuous pulse oxymeter in place to monitor closely. Call light in reach. Will continue to monitor.
[2020-12-22 07:05] LABS: ARTERIAL BLD GAS O2 SATURATION 97.7 % (92-100); ARTERIAL BLD GAS TCO2 CT 22.4; ARTERIAL BLOOD GAS HCO3 21.2 meq/L (22-26); ARTERIAL BLOOD GAS PCO2 39.2 mmHg (35-45); ARTERIAL BLOOD GAS PO2 120.7 mmHg (80-100); ARTERIAL BLOOD GAS pH 7.35 (7.35-7.45)
--- NOTE | 2020-12-22 07:20 | NUR ---
PT CALLED DIRECTOR CALL LIGHT BUT UNABLE TO UNDERSTAND HER DUE TO BIPAP. PT APPEARED TO BE DRY HEAVING. ENTERED ROOM. PT DENIES NAUSEA, BUT REPORTED NEED FOR ICE WATER AND TO USE THE RESTROOM. BEDSIDE COMMODE UTILIZED AND URINE WAS VERY DARK AND FOUL SMELLING. AFTER GETTING PT BACK INTO BED PT C/O SHARP R SIDED CHEST PAIN THAT RADIATES TO THE BACK. PT RR STARTED TO ELEVATE INTO 50'S AND O2 DROPPING TO LOW 80'S. 0729 RT NOTFIED, FI02 TURNED TO 100%. 0734 DR. PONCE CALLED AND NOTIFIED, VERBAL ORDERS GIVEN AND PLACED. EKG OBTAINED AND DR. PONCE CALLED AT 0746 WITH THE RESULTS, CT CHEST ORDERED AND HEPARIN DRIP ORDERED. MORPHINE GIVEN PER ORDER, PT APPEARED TO CALM DOWN AFTER ADMINISTRATION. HEPARIN DRIP STARTED WITH BOLUS. TRANSFER ORDERS PLACED FOR ICU. CALLED REPORT TO ALLEN BORDEN 0759. GATHERED PT BELONGINGS FOR TRANSFER, PT TRANSFERRED DOWNSTAIRS ON BIPAP WITH PT BELONGINGS. CT NOTIFIED OF NEED FOR IMAGING. ARRIVED TO ICU 0835.
[2020-12-22 08:30] LABS: MEAN CELL VOLUME 89 fl (80.0-100.0); MEAN CORPUSCULAR HGB CONC 32 g/dl (33.0-37.0); MEAN PLATELET VOLUME 10.3 fl (7.4-10.4); PLATELET COUNT 278 K/mm3 (130-400)
--- NOTE | 2020-12-22 08:35 | NUR ---
Pt arrived from Medical floor - oxygen tanks on BiPAP required exchange - pt then taken to CT by RT Danielle and myself. Pt tolerated well. 0849 pt back in ICU. Pt awake, drowsy, oriented x4. Extensive crepitus/subcutaneous emphysema on right chest/neck. 904 MD Andres on unit. BiPAP vs AirVo discussed d/t pneumomediastinum. MD Andres wants BiPAP to remain on with decreased pressure settings. RT Elisabeth on unit at 0920 discussing plan of care with MD Andres and myself. Prior to BiPAP settings change respiratory rate 37/min. 23-30/min after change in setting. SpO2 >90%. [facility] called for PICC placement
[2020-12-22 08:36] LABS: CALCIUM 8.7 mg/dL (8.4-10.2); CREATININE, serum 1.02 (0.52-1.25); POTASSIUM 4.8 mmol/L (3.4-5.0)
[2020-12-22 08:38] LABS: PARTIAL THROMBOPLASTIN TIME 39.1 SECONDS (26.0-37.0)
[2020-12-22 08:54] LABS: HEMATOCRIT 35.6 % (37.0-47.0); HEMOGLOBIN 11.5 g/dl (12.5-16.0); MEAN CORPUSCULAR HEMOGLOBIN 29 pg (27.0-31.0)
[2020-12-22 10:08] LABS: BAND 6 % (0-10); LYMPHOCYTE 13 % (20.0-51.0); MYELOCYTE 1 % (0-0); NEUTROPHILS 76 % (42.0-75.2)
[2020-12-22 10:09] LABS: PLATELET ESTIMATE NORMAL (NORMAL)
--- NOTE | 2020-12-22 13:33 | NUR ---
Pt's father Jovi Alberts updated on telephone - all questions answered
--- NOTE | 2020-12-22 13:34 | NUR ---
The patient transferred to the ICU from the medical unit and was placed on a bipap. The patient is COVID positive. SW contacted the patient's mother, Romero (ph#[phone]), to complete intake. The patient lives alone in [place]. Romero reports that the patient is independent with ADLs and does not have any DME. The patient's primary care provider is Leidy Basurto APRN and she receives her medications from [facility]. Romero reports that he is not aware of the patient having any difficulties obtaining her meds. The patient does not have a DPOA-HC in EMR, but Romero thinks that the patient may have one done. She states she believes the patient designated her father, Jovi (ph#[phone]). Romero are Jovi are still together and reside in [place]. Romero reports that the patient is not and does not have any children. The patient's next of kin is her parents: Romero and Estevan. ELIZABETH to continue to follow for any d/c needs.
--- NOTE | 2020-12-22 14:46 | NUR ---
Pt tolerating BiPAP well. Occasional momentary breaks for water provided - pt has no difficulty drinking/swallowing, however SpO2 decreased to 79-83% rapidly being off BiPAP for just enough time to take several sips of water. SpO2 normalized slowly back to baseline 87-92% over aprox 5min.
--- NOTE | 2020-12-22 16:00 | NUR ---
Pt encouraged to turn self from side to side and prone as well. Pt agrees and turned self to side without difficulty - operating HOB control buttons independently.
--- NOTE | 2020-12-22 20:55 | NUR ---
PATIENT HAS JUST FINISHED HER EVENING MEAL, ASSORTMENT OF BROTH/ SANDWICH/ APPLESAUCE. BIPAP PLACED TWICE DURING 15 MINUTE MEAL BREAK. TO KEEP SATS ABOVE 90s.
[2020-12-23] VITALS (690 sets, daily range): BP systolic 113–146; BP diastolic 74–86; PULSE 89–105; TEMP 98.1–99.5; O2SAT 69–100
--- NOTE | 2020-12-23 00:10 | NUR ---
PATIENT RESTING AWAKENS EASILY, DENIES DISCOMFORT/has steady nonproductive cough
[2020-12-23 04:38] LABS: ARTERIAL BLD GAS O2 SATURATION 87.9 % (92-100); ARTERIAL BLD GAS TCO2 CT 21.2; ARTERIAL BLOOD GAS BASE EXCESS -2.5 (-2-2); ARTERIAL BLOOD GAS HCO3 20.3 meq/L (22-26); ARTERIAL BLOOD GAS PCO2 28.8 mmHg (35-45); ARTERIAL BLOOD GAS pH 7.47 (7.35-7.45)
[2020-12-23 04:51] LABS: BASO # 0.1 (0.0-0.2); BASO % 0.3 % (0.0-2.0); GRAN # 18.4 (1.4-6.5); GRAN % 86.5 % (42.2-75.2); HEMATOCRIT 37.1 % (37.0-47.0); HEMOGLOBIN 11.8 g/dl (12.5-16.0); LYMPH # 1.6 (1.2-3.4); LYMPH % 7.6 % (20.0-51.0); MEAN CELL VOLUME 91 fl (80.0-100.0); MEAN CORPUSCULAR HEMOGLOBIN 29 pg (27.0-31.0); MEAN CORPUSCULAR HGB CONC 32 g/dl (33.0-37.0); MEAN PLATELET VOLUME 9.9 fl (7.4-10.4); MONO % 4.6 % (1.7-9.3); PLATELET COUNT 195 K/mm3 (130-400); RED BLOOD COUNT 4.08 M/mm3 (4.10-5.30); REDCELL DISTRIBUTION WIDTH-CV 13.1 % (11.5-14.5)
[2020-12-23 05:03] LABS: ALBUMIN 2.9 gm/dL (3.5-5.0); BILIRUBIN,TOTAL 0.3 mg/dL (0.0-1.0); C-REACTIVE PROTEIN 7.1 mg/dL (0.0-0.9); CALCIUM 8.2 mg/dL (8.4-10.2); CREATININE, serum 1.16 (0.52-1.25); POTASSIUM 4.6 mmol/L (3.4-5.0); TOTAL PROTEIN 6.3 gm/dL (6.4-8.2)
--- NOTE | 2020-12-23 07:00 | NUR ---
RECEIVED REPORT FROM ALLEN HERNANDEZ. PT RESTING EASILY ON BIPAP OF 80%. RT ALY AT BEDSIDE GOING TO PLACE PT ON HFNC AT 8L. WILL MONITOR CLOSELY TO KEEP POX >90%. ALL OTHER VSS. CALL LIGHT WITHIN REACH. BREAKFAST TRAY GIVEN TO PT.
--- NOTE | 2020-12-23 23:37 | NUR ---
REPORT CALLED TO ALLEN CABRERA PATIENT'S DAD CALLED AND INFORMED OF ROOM CHANGE PATIENT INFORMED ALL BELONGING SENT WITH PATIENT
[2020-12-24] VITALS (8 sets, daily range): BP systolic 136–175; BP diastolic 72–95; PULSE 98–117; TEMP 98.2–99.4
--- NOTE | 2020-12-24 00:12 | NUR ---
Arrived to room 304, awake, alert, oriented x 4, ambulates indpendently, moss in place drainging to gravity, respiratory therapist in room currently, denies pain, oriented to room, will continue to monitor.
--- NOTE | 2020-12-24 05:15 | NUR ---
Patient resting quietly, Bipap in use, SPO2@98% at this time, moss draining to gravity w/o issue, tlemetry in use, no s/s of hypo/hyper glycemia noted, will continue to monitor.
[2020-12-24 08:50] LABS: BASO # 0.1 (0.0-0.2); BASO % 0.3 % (0.0-2.0); GRAN # 19.3 (1.4-6.5); GRAN % 82.8 % (42.2-75.2); LYMPH # 2.4 (1.2-3.4); LYMPH % 10.5 % (20.0-51.0); MEAN CELL VOLUME 91 fl (80.0-100.0); MEAN CORPUSCULAR HGB CONC 32 g/dl (33.0-37.0); MEAN PLATELET VOLUME 11.3 fl (7.4-10.4); MONO # 1.2 (0.1-0.6); MONO % 5.2 % (1.7-9.3); PLATELET COUNT 279 K/mm3 (130-400); RED BLOOD COUNT 3.35 M/mm3 (4.10-5.30); REDCELL DISTRIBUTION WIDTH-CV 12.9 % (11.5-14.5)
[2020-12-24 09:00] LABS: HEMATOCRIT 30.4 % (37.0-47.0); HEMOGLOBIN 9.8 g/dl (12.5-16.0); MEAN CORPUSCULAR HEMOGLOBIN 29 pg (27.0-31.0)
[2020-12-24 09:03] LABS: C-REACTIVE PROTEIN 7.9 mg/dL (0.0-0.9); CALCIUM 8.6 mg/dL (8.4-10.2); CREATININE, serum 1.22 (0.52-1.25); POTASSIUM 3.7 mmol/L (3.4-5.0)
--- NOTE | 2020-12-24 09:04 | NUR ---
SCHEDULED MEDICATIONS GIVEN. SHIFT ASSESSMENT PREFORMED. CURRENTLY REQUIRING 8L OF HIGH FLOW OXYGEN THROUGH A NASAL CANNULA. PATIENT DENIES ANY PAIN, DISCOMFORT, N/V/D. VSS. CALL LIGHT IN REACH.
--- NOTE | 2020-12-24 18:30 | NUR ---
REPORT GIVEN TO TAXATION ACCOUNTANT. PATIENT A&O. PATIENT CURRENTLY REQUIRING 8 L OF O2 VIA NASAL CANNULA. BUSH IN PLACE, SECUREMENT DEVICE IN USE. PATIENT DENIES ANY PAIN, DISCOMFORT, OR FURTHER NEEDS AT THIS TIME. CALL LIGHT IN REACH. VSS.
--- NOTE | 2020-12-24 21:10 | NUR ---
call placed to Jennifer Amanda re: BSL 432- no new orders, continue with current orders for sliding scale.
[2020-12-24 22:36] LABS: MEAN CELL VOLUME 93 fl (80.0-100.0); MEAN CORPUSCULAR HGB CONC 31 g/dl (33.0-37.0); PLATELET COUNT 254 K/mm3 (130-400); RED BLOOD COUNT 2.83 M/mm3 (4.10-5.30); REDCELL DISTRIBUTION WIDTH-CV 12.6 % (11.5-14.5)
[2020-12-24 22:41] LABS: CALCIUM 6.6 mg/dL (8.4-10.2); CREATININE, serum 1.11 (0.52-1.25); MAGNESIUM 1.2 mg/dL (1.6-2.3); PHOSPHOROUS 3.2 mg/dL (2.5-4.5); POTASSIUM 3.5 mmol/L (3.4-5.0)
[2020-12-24 22:50] LABS: HEMATOCRIT 26.2 % (37.0-47.0); HEMOGLOBIN 8.2 g/dl (12.5-16.0); MEAN CORPUSCULAR HEMOGLOBIN 29 pg (27.0-31.0)
[2020-12-24 22:52] LABS: TROPONIN-I 0.02 ng/mL (0.000-0.035)
[2020-12-24 23:17] LABS: BAND 14 % (0-10); LYMPHOCYTE 6 % (20.0-51.0); METAMYELOCYTE 1 % (0-0); NEUTROPHILS 77 % (42.0-75.2)
[2020-12-24 23:18] LABS: PLATELET ESTIMATE NORMAL (NORMAL)
[2020-12-24 23:19] LABS: HYPOCHROMIA 1+
[2020-12-25 03:08] VITALS: BP 145/89; PULSE 94; TEMP 100.5
--- NOTE | 2020-12-25 03:18 | NUR ---
Phone order read back to MATT Rodriguez-Hospitalist to use ordred insulin order based on current bedside glucose result.
[2020-12-25 03:30] LABS: ARTERIAL BLD GAS O2 SATURATION 94.6 % (92-100); ARTERIAL BLD GAS TCO2 CT 23.8; ARTERIAL BLOOD GAS HCO3 22.8 meq/L (22-26); ARTERIAL BLOOD GAS PCO2 34.2 mmHg (35-45); ARTERIAL BLOOD GAS PO2 75.3 mmHg (80-100); ARTERIAL BLOOD GAS pH 7.44 (7.35-7.45)
[2020-12-25 04:10] LABS: MEAN CORPUSCULAR HGB CONC 33 g/dl (33.0-37.0); MEAN PLATELET VOLUME 10.3 fl (7.4-10.4); PLATELET COUNT 296 K/mm3 (130-400); RED BLOOD COUNT 3.27 M/mm3 (4.10-5.30); REDCELL DISTRIBUTION WIDTH-CV 12.7 % (11.5-14.5)
[2020-12-25 04:18] LABS: HEMATOCRIT 28.6 % (37.0-47.0); HEMOGLOBIN 9.4 g/dl (12.5-16.0); MEAN CORPUSCULAR HEMOGLOBIN 29 pg (27.0-31.0)
[2020-12-25 04:19] LABS: MEAN CELL VOLUME 88 fl (80.0-100.0)
[2020-12-25 04:23] LABS: C-REACTIVE PROTEIN 5.5 mg/dL (0.0-0.9); CALCIUM 8.6 mg/dL (8.4-10.2); CREATININE, serum 1.13 (0.52-1.25); POTASSIUM 4.9 mmol/L (3.4-5.0)
[2020-12-25 04:34] LABS: TROPONIN-I 6 HR POST INITIAL 0.052 ng/mL (0.000-0.034)
--- NOTE | 2020-12-25 05:00 | NUR ---
Call placed to Jennifer Amanda re: critical WBC, critical troponin, see new orders. patient is stable, VS stable, no c/o pain, will continue to monitor.
[2020-12-25 05:05] LABS: BAND 11 % (0-10); LYMPHOCYTE 8 % (20.0-51.0); NEUTROPHILS 72 % (42.0-75.2)
[2020-12-25 05:06] LABS: PLATELET ESTIMATE NORMAL (NORMAL)
[2020-12-25 09:21] VITALS: BP 150/93; PULSE 101; TEMP 98.6
--- NOTE | 2020-12-25 11:23 | NUR ---
THIS RN NOTIFIED FROM TELE THAT PATIENT WAS THROWING PVC'S AND IS INTERMITTENTLY IN VTACH. DR. PONCE NOTIFIED.
[2020-12-25 12:43] VITALS: BP 144/94; PULSE 93; TEMP 98.2
[2020-12-25 13:07] LABS: CALCIUM 8.1 mg/dL (8.4-10.2); CREATININE, serum 1.07 (0.52-1.25); MAGNESIUM 2.2 mg/dL (1.6-2.3); POTASSIUM 4.5 mmol/L (3.4-5.0)
[2020-12-25 13:18] LABS: TROPONIN-I 0.021 ng/mL (0.000-0.035)
[2020-12-25 13:41] LABS: ARTERIAL BLD GAS O2 SATURATION 98.5 % (92-100); ARTERIAL BLD GAS TCO2 CT 21.2; ARTERIAL BLOOD GAS BASE EXCESS -2.3 (-2-2); ARTERIAL BLOOD GAS HCO3 20.3 meq/L (22-26); ARTERIAL BLOOD GAS PCO2 27.7 mmHg (35-45); ARTERIAL BLOOD GAS pH 7.48 (7.35-7.45)
[2020-12-25 13:42] LABS: ARTERIAL BLOOD GAS PO2 149.6 mmHg (80-100)
[2020-12-25 14:26] LABS: CLOSTRIDIUM DIFF A/B NEG; CLOSTRIDIUM DIFF A/B INTERP No C.diff present
[2020-12-25 16:00] VITALS: BP 151/95; PULSE 98
--- NOTE | 2020-12-25 19:05 | NUR ---
SCHEDULED MEDICATIONS GIVEN. SHIFT ASSESSMENT PREFORMED. PICC LINE FLUSHED, BLOOD RETURN PRESENT. NO SIGNS OF COMPLICATIONS. BUSH IN PLACE, SECURMENT DEVICE IN PLACE. PATIENT IS CURRENTLY REQUIRING BIPAP AT 35%. PATIENT GIVEN BED BATH. PATIENT DENIES ANY PAIN, DISCOMFORT, OR FURTHER NEEDS AT THIS TIME. CALL LIGHT IN REACH.
[2020-12-25 20:13] VITALS: BP 147/88; PULSE 95; TEMP 98.3
--- NOTE | 2020-12-25 23:41 | NUR ---
Patient resting in bed comfortably with eyes closed. Patient awake easily with voice and touch. Patient denies any pain or discomfort. Patient currently on Bipap FiO2 35%. VS stable. Right upper arm PICC site dressing C/D/I. Green patient and draining clear yellow urine. All scheduled meds given per JUN. Call light in reach. Will continue to monitor.
[2020-12-26] VITALS (32 sets, daily range): BP systolic 139–175; BP diastolic 78–99; PULSE 66–106; TEMP 97.9–99.8; O2SAT 85–100
[2020-12-26 05:04] LABS: ARTERIAL BLD GAS O2 SATURATION 96.7 % (92-100); ARTERIAL BLD GAS TCO2 CT 22.2; ARTERIAL BLOOD GAS BASE EXCESS -2.9 (-2-2); ARTERIAL BLOOD GAS HCO3 21.2 meq/L (22-26); ARTERIAL BLOOD GAS PCO2 33.6 mmHg (35-45); ARTERIAL BLOOD GAS PO2 87.4 mmHg (80-100); ARTERIAL BLOOD GAS pH 7.42 (7.35-7.45)
--- NOTE | 2020-12-26 06:23 | NUR ---
Patient remains on Bipap FiO2 35% over the night. Patient had loose BM x2. GI panel collected and sent to lab. Patient started coughing a lot after ambulates to the bathroom. PRN cough med given. BS 61 at 06:20 am. 4 oz of apple juice given. Call light in reach. Will give report to day shift nurse.
--- NOTE | 2020-12-26 07:14 | NUR ---
Report received from ALLEN Reyes. Pt. resting in bed w/ eyes closed, BIPAP on. Call light and belongings in reach.
[2020-12-26 07:30] LABS: MEAN CELL VOLUME 91 fl (80.0-100.0); MEAN CORPUSCULAR HGB CONC 31 g/dl (33.0-37.0); MEAN PLATELET VOLUME 10.5 fl (7.4-10.4); PLATELET COUNT 364 K/mm3 (130-400); RED BLOOD COUNT 3.37 M/mm3 (4.10-5.30); REDCELL DISTRIBUTION WIDTH-CV 12.7 % (11.5-14.5)
[2020-12-26 07:32] LABS: ALBUMIN 3.1 gm/dL (3.5-5.0); BILIRUBIN,TOTAL 0.3 mg/dL (0.0-1.0); C-REACTIVE PROTEIN 6.4 mg/dL (0.0-0.9); CALCIUM 8.7 mg/dL (8.4-10.2); CREATININE, serum 1.12 (0.52-1.25); POTASSIUM 3.9 mmol/L (3.4-5.0); TOTAL PROTEIN 6.6 gm/dL (6.4-8.2)
[2020-12-26 07:38] LABS: HEMATOCRIT 30.8 % (37.0-47.0); HEMOGLOBIN 9.6 g/dl (12.5-16.0); MEAN CORPUSCULAR HEMOGLOBIN 28 pg (27.0-31.0)
--- NOTE | 2020-12-26 07:59 | NUR ---
New critical WBC 22.2 result for this patient today. Dr. Gibson notified on the telephone, no new orders at this time.
[2020-12-26 08:57] LABS: HYPOCHROMIA 2+; LYMPHOCYTE 11 % (20.0-51.0); NEUTROPHILS 81 % (42.0-75.2)
[2020-12-26 08:58] LABS: PLATELET ESTIMATE NORMAL (NORMAL)
--- NOTE | 2020-12-26 10:59 | NUR ---
This RN assessed pt and blood sugar was low. Pt. reported "it feels like it could be low" but no other symptoms. Pt. was given 4oz of gatorade along with her AM breakfast. Blood sugar now WNL. Pt. OOB w/ steady gait and using the rest room. Pt. reports she has been experiencing loose stools for the past couple of days. Pt. was able to tolerate her breakfast and she ate 100%. Scheduled antibiotic infusing along with amiodarone. Pt. was placed on 10L hi-frank nasal cannula in order to eat. Will check with Dr. Gibson to update her on pt.'s blood sugar as well as reccomendations for oxygen delivery device for the day.
--- NOTE | 2020-12-26 18:04 | NUR ---
Pt.'s moss cath removed per Dr. Gibson telephone order. Pt.'s blood sugar is elevated at this time. Will call night provider to notify.
[2020-12-26 21:48] LABS: CALCIUM 8.4 mg/dL (8.4-10.2); CREATININE, serum 1.24 (0.52-1.25); POTASSIUM 4.8 mmol/L (3.4-5.0)
[2020-12-26 22:20] LABS: MAGNESIUM 1.9 mg/dL (1.6-2.3); PHOSPHOROUS 4.4 mg/dL (2.5-4.5)
[2020-12-26 22:21] LABS: ARTERIAL BLD GAS O2 SATURATION 98.1 % (92-100); ARTERIAL BLD GAS TCO2 CT 18.7; ARTERIAL BLOOD GAS BASE EXCESS -5.6 (-2-2); ARTERIAL BLOOD GAS HCO3 17.9 meq/L (22-26); ARTERIAL BLOOD GAS PCO2 28.1 mmHg (35-45); ARTERIAL BLOOD GAS PO2 119.8 mmHg (80-100); ARTERIAL BLOOD GAS pH 7.42 (7.35-7.45)
--- NOTE | 2020-12-26 22:26 | NUR ---
Patient's BS level was 543 at 20:05 pm. Patient A/Ox3. Reports feeling thirsty. Denies headache, dizziness, N/V, blurred vison, or confusion. Made LES Rodriguez aware. Per LES Rodriguez, give Insulin Novolin 10 units IV and IVF and recheck after 1 hour. Insulin IV 10 units given. BS recheck at 21:25 was 538. BMP lab draw at this time and result was 595. Made LES Rodriguez aware. Call light in reach. Will continue to monitor for any change of condition.
--- NOTE | 2020-12-26 23:00 | NUR ---
Patient arrived to ICU 2 at this time.
[2020-12-27] VITALS (497 sets, daily range): BP systolic 139–161; BP diastolic 91–105; PULSE 92–102; TEMP 97.5–98.5; O2SAT 76–100
--- NOTE | 2020-12-27 | NUR ---
Patient insulin gtt started at 2330. Patient alert and orientated. Assessment complete and charted. Denies needs.
[2020-12-27 02:59] LABS: ARTERIAL BLD GAS O2 SATURATION 97.8 % (92-100); ARTERIAL BLD GAS TCO2 CT 21.7; ARTERIAL BLOOD GAS BASE EXCESS -3.3 (-2-2); ARTERIAL BLOOD GAS HCO3 20.6 meq/L (22-26); ARTERIAL BLOOD GAS PO2 116.2 mmHg (80-100); ARTERIAL BLOOD GAS pH 7.41 (7.35-7.45)
[2020-12-27 03:54] LABS: CALCIUM 8.8 mg/dL (8.4-10.2); CREATININE, serum 1.14 (0.52-1.25); POTASSIUM 3.8 mmol/L (3.4-5.0)
[2020-12-27 04:22] LABS: MAGNESIUM 1.8 mg/dL (1.6-2.3)
[2020-12-27 06:10] LABS: MEAN CELL VOLUME 87 fl (80.0-100.0); MEAN CORPUSCULAR HGB CONC 34 g/dl (33.0-37.0); PLATELET COUNT 266 K/mm3 (130-400); RED BLOOD COUNT 2.97 M/mm3 (4.10-5.30); REDCELL DISTRIBUTION WIDTH-CV 12.4 % (11.5-14.5)
[2020-12-27 06:15] LABS: HEMATOCRIT 25.7 % (37.0-47.0); HEMOGLOBIN 8.6 g/dl (12.5-16.0); MEAN CORPUSCULAR HEMOGLOBIN 29 pg (27.0-31.0)
[2020-12-27 06:20] LABS: CALCIUM 8.4 mg/dL (8.4-10.2); CREATININE, serum 1.11 (0.52-1.25); POTASSIUM 3.9 mmol/L (3.4-5.0)
--- NOTE | 2020-12-27 06:37 | NUR ---
Patient remains on insulin gtt during night. Resting in bed asleep this AM. Call light in reach.
[2020-12-27 06:55] LABS: BAND 25 % (0-10); LYMPHOCYTE 12 % (20.0-51.0); METAMYELOCYTE 2 % (0-0); NEUTROPHILS 54 % (42.0-75.2); PLATELET ESTIMATE NORMAL (NORMAL)
--- NOTE | 2020-12-27 08:30 | NUR ---
Assessment completed after receiving report from ALLEN Gomes. Patient wakes easily and is quite energetic. She gets up to commode easily. Breakfast is ordered and meds given without issue. BG was 150, Insulin gtt adjusted to 2 units/hr. Will continue to monitor.
--- NOTE | 2020-12-27 09:30 | NUR ---
Dr. Gibson gives order to stop insulin gtt. BG 105.
--- NOTE | 2020-12-27 13:15 | NUR ---
IV AMIODARONE DISCONTINUED. PATIENT SLEEPING AFTER EATING LUNCH. MAGNESIUM REPLACED PER DR. KRIS CARLOS. SHE HAS BEEN ON ROOM AIR FOR ABOUT AN HOUR AND HER SPO2 IS CONSISTENTLY 96-98%
--- NOTE | 2020-12-27 19:30 | NUR ---
Received report from ALLEN Del Rio.
--- NOTE | 2020-12-27 19:50 | NUR ---
REPORT GIVEN TO ALLEN YANEZ
--- NOTE | 2020-12-27 20:30 | NUR ---
Assessment complete. Patient is A&Ox4; independent in the room. All vitals within normal limits. Denies any pain at this time. Receiving IVF at 150mL/hr and insulin drip at 3 units/hr. Tolerating well. On room air at this time satting mid-high 90s.
[2020-12-28] VITALS (314 sets, daily range): BP systolic 133–158; BP diastolic 80–103; PULSE 75–100; TEMP 97.6–99.8; O2SAT 94–100
[2020-12-28 05:22] LABS: MEAN CELL VOLUME 86 fl (80.0-100.0); MEAN CORPUSCULAR HGB CONC 33 g/dl (33.0-37.0); MEAN PLATELET VOLUME 9.9 fl (7.4-10.4); PLATELET COUNT 336 K/mm3 (130-400); RED BLOOD COUNT 3.28 M/mm3 (4.10-5.30); REDCELL DISTRIBUTION WIDTH-CV 12.6 % (11.5-14.5)
[2020-12-28 05:29] LABS: HEMATOCRIT 28.3 % (37.0-47.0); HEMOGLOBIN 9.2 g/dl (12.5-16.0); MEAN CORPUSCULAR HEMOGLOBIN 28 pg (27.0-31.0)
[2020-12-28 05:37] LABS: C-REACTIVE PROTEIN 3.2 mg/dL (0.0-0.9); CALCIUM 8.8 mg/dL (8.4-10.2); CREATININE, serum 1.34 (0.52-1.25); POTASSIUM 3.9 mmol/L (3.4-5.0)
[2020-12-28 06:11] LABS: LYMPHOCYTE 22 % (20.0-51.0); METAMYELOCYTE 2 % (0-0); MYELOCYTE 1 % (0-0); NEUTROPHILS 62 % (42.0-75.2); PLATELET ESTIMATE NORMAL (NORMAL)
--- NOTE | 2020-12-28 07:10 | NUR ---
RECEIVED REPORT FROM ALLEN FLOREZ. PT SLEEPING ON RA. VSS. CALL LIGHT WITHIN REACH.
--- NOTE | 2020-12-28 10:29 | NUR ---
Buttonhole Marker attended clinical rounds with the team and patient to transfer to the medical floor. SW contacted patient by phone to review discharge plan. Patient plans to return home upon discharge and plans to drive herself home unless there are any medical restrictions. Patient inquired about local financial resources as she has been off of work. SW reviewed [facility] and provided their phone number and hours.
--- NOTE | 2020-12-28 14:07 | NUR ---
ATTEMPTED TO GIVE REPORT TO ALLEN HERNANDEZ ON MEDICAL AT 1316 & 1403. GAE REPORT TO ALLEN HERNANDEZ AT 1407. ALL PERSONAL BELONGINGS SENT WITH PT. PT TRANSFERRED VIA WC ON RA. STEADY GAIT NOTED.
--- NOTE | 2020-12-28 22:34 | NUR ---
PT RESTING IN BED. EVENING MEDICATIONS GIVEN. PT COMPLAINING OF HER ABDOMEN BEING ROUND, DISTENDED, AND FIRM. BOWEL SOUNDS ACTIVE IN ALL FOUR QUADRANTS. PT REPORTS SHE HAD TWO SMALL BMS TODAY. DENIES ANY NEEDS AT THIS TIME. WILL CONTINUE TO MONITOR.
[2020-12-29 04:04] VITALS: BP 163/96; PULSE 85; TEMP 98.8
--- NOTE | 2020-12-29 05:54 | NUR ---
PT HAD A RESTFUL NIGHT, IS EAGER TO BE DISCHARGED. STATES SHE IS HOPING TO BE OUT BY 1030 DUE TO THAT BEING THE ONLY TIME SHE WILL HAVE A RIDE. WILL RELAY THE MASSAGE TO DAYSHIFT. WILL CONTINUE TO MONITOR.
--- NOTE | 2020-12-29 09:06 | NUR ---
Pt awake and walking in room upon entry, no C/O pain at this time. Shift assessment complete, left Pt call light in reach, in bed, bed in lowest position.
[2020-12-29] MEDS ORDERED: PROAIR HFA0.09 MG/AC IH (09:21)
[2020-12-29] MEDS ORDERED: MAG-OX 400400 MG/TAB PO (09:22)
[2020-12-29] MEDS ORDERED: COREG 3.123.125 MG/T PO (09:30)
[2020-12-29 09:31] VITALS: BP 159/96; PULSE 93; TEMP 98.4
[2020-12-29] MEDS ORDERED: CORDARONE200 MG/TAB PO (09:36)
--- NOTE | 2020-12-29 10:04 | NUR ---
The patient is to discharge back home today, 12/29. No additional needs at this time.
--- NOTE | 2020-12-29 12:00 | NUR ---
Pt discharged to home. Discussed discharge packet with Pt. PICC line removed. Pt escorted to entrance by PCT, Pt left with family via private transportation.
== END 2020-12-29 12:00 | disposition home or self-care (01) | DRG 177 ==
LOC: COL.ER 15:17 → MEDICAL 17:17 → ICU 17:17 → COL.ER 17:17 → ICU 12-22 08:49 → MEDICAL 12-22 08:49 → ICU 12-22 08:49 → MEDICAL 12-23 23:41 → ICU 12-23 23:41 → MEDICAL 12-24 23:00 → ICU 12-26 22:51 → MEDICAL 12-28 14:48
PROVIDERS: Emergency Medicine; Internal Medicine; Internal Medicine Sleep Medicine; Nurse Practitioner Family; Student in an Organized Health Care Education/Training Program; ADMIT Internal Medicine
PROC: 02HV33Z Insertion of Infusion Device into Superior Vena Cava, Percutaneous Approach (ICD-10-PCS; principal; 2020-12-22)
PROC: XW033E5 Introduction of Remdesivir Anti-infective into Peripheral Vein, Percutaneous Approach, New Technology Group 5 (ICD-10-PCS; 2020-12-26)
DX: U07.1 COVID-19 (principal); J12.82 Pneumonia due to coronavirus disease 2019; J96.01 Acute respiratory failure with hypoxia; J15.9 Unspecified bacterial pneumonia; J93.9 Pneumothorax, unspecified; E87.1 Hypo-osmolality and hyponatremia; I47.2 Ventricular tachycardia; R65.10 Systemic inflammatory response syndrome (SIRS) of non-infectious origin without acute organ dysfunction; J39.8 Other specified diseases of upper respiratory tract; J98.2 Interstitial emphysema; R07.9 Chest pain, unspecified; E10.65 Type 1 diabetes mellitus with hyperglycemia; E10.649 Type 1 diabetes mellitus with hypoglycemia without coma
CPT/HCPCS: 99222-AI; 99232-AI; 99233-AI; 99239; C1751; J0133; J0282; J0456; J0696; J1100; J1644; J1650; J1815; J1940; J2060; J2270; J2543; J3475; J3480; J7030; J7050; J7060; J8540; Q9967

== ENCOUNTER 2021-01-13 10:49 | Emergency (ER) | payer BC ==
[~2021-01-13] VITALS: Ht 165.1 cm; Wt 61.4 kg
[~2021-01-13 10:49] MED LIST changes: +CORDARONE200 MG/TAB PO; +COREG 3.123.125 MG/T PO; +PROAIR HFA0.09 MG/AC IH
[2021-01-13 11:03] VITALS: TEMP 98.7
[2021-01-13 11:40] LABS: BASO # 0.1 (0.0-0.2); EOS # 0.2 (0.0-0.7); EOS % 2.4 % (0-4.0); GRAN # 6.4 (1.4-6.5); GRAN % 62.6 % (42.2-75.2); HEMOGLOBIN 10.9 g/dl (12.5-16.0); LYMPH # 2.8 (1.2-3.4); LYMPH % 27.3 % (20.0-51.0); MEAN CELL VOLUME 87 fl (80.0-100.0); MEAN CORPUSCULAR HEMOGLOBIN 29 pg (27.0-31.0); MEAN CORPUSCULAR HGB CONC 33 g/dl (33.0-37.0); MEAN PLATELET VOLUME 9.7 fl (7.4-10.4); MONO # 0.6 (0.1-0.6); MONO % 6.2 % (1.7-9.3); PLATELET COUNT 321 K/mm3 (130-400); RED BLOOD COUNT 3.74 M/mm3 (4.10-5.30); REDCELL DISTRIBUTION WIDTH-CV 13.7 % (11.5-14.5)
[2021-01-13 11:42] LABS: HEMATOCRIT 32.6 % (37.0-47.0)
[2021-01-13 11:46] LABS: COLLECTION METHOD CLEAN CATCH
[2021-01-13 11:54] LABS: PH 6 (5-8); SQUAMOUS EPITHELIAL None Seen /hpf; URINE APPEARANCE Clear; URINE BACTERIA None Seen /hpf; URINE BILIRUBIN Negative (NEGATIVE); URINE BLOOD Negative (NEGATIVE); URINE COLOR Straw; URINE GLUCOSE 3+ (NEGATIVE); URINE KETONE Negative (NEGATIVE); URINE LEUKOCYTE ESTERASE Trace (NEGATIVE); URINE NITRATE Negative (NEGATIVE); URINE PROTEIN(semi-quant) 2+ (NEGATIVE); URINE RBC 0-2 /hpf; URINE UROBILINOGEN Negative (NEGATIVE)
[2021-01-13 12:13] LABS: ALBUMIN 3.5 gm/dL (3.5-5.0); BILIRUBIN,TOTAL 0.3 mg/dL (0.2-1.2); CALCIUM 9.1 mg/dL (8.4-10.2); CREATININE, serum 2.41 mg/dL (0.57-1.11); POTASSIUM 4.5 mmol/L (3.5-4.5); TOTAL PROTEIN 7.9 gm/dL (6.2-8.1)
[2021-01-13] MEDS ORDERED: NORVASC 5MG5 MG/TAB PO (13:07)
[2021-01-13 13:32] VITALS: BP 163/123; PULSE 90
== END 2021-01-13 13:32 | disposition home or self-care (01) ==
LOC: COL.ER 10:49
PROVIDERS: Nurse Practitioner
DX: N17.9 Acute kidney failure, unspecified (principal); E10.65 Type 1 diabetes mellitus with hyperglycemia; I10 Essential (primary) hypertension; Z86.16 Personal history of COVID-19; Z87.891 Personal history of nicotine dependence; Z79.4 Long term (current) use of insulin; Z79.899 Other long term (current) drug therapy
CPT/HCPCS: J7030

== ENCOUNTER → 2021-01-14 | Outpatient (CLI) | payer BC ==
[~2021-01-14] MED LIST changes: +NORVASC 5MG5 MG/TAB PO
[2021-01-14 12:22] LABS: CALCIUM 8.9 mg/dL (8.4-10.2); CREATININE, serum 1.67 mg/dL (0.57-1.11); POTASSIUM 4.5 mmol/L (3.5-4.5)
== END ==
LOC: COL.LAB 10:38
PROVIDERS: Registered Nurse
DX: N17.9 Acute kidney failure, unspecified (principal); R05 Cough

== ENCOUNTER → 2021-05-21 | Outpatient (CLI) | payer BC | LOC: COL.LAB 10:54 | DX: N18.31 Chronic kidney disease, stage 3a (principal); R80.8 Other proteinuria ==

== ENCOUNTER → 2021-08-25 | Outpatient (CLI) | payer BC | LOC: COL.LAB 11:00 | DX: R05.9 Cough, unspecified (principal) ==

== ENCOUNTER 2021-11-16 18:12 | Emergency (ER) | payer BC ==
[~2021-11-16] VITALS: Ht 165.1 cm; Wt 65.9 kg
[2021-11-16 18:40] VITALS: TEMP 97.3
[2021-11-16 18:46] LABS: BASO % 0.4 % (0.0-2.0); EOS # 0.1 K/mm3 (0.0-0.7); EOS % 1.2 % (0.0-4.0); GRAN % 65.5 % (42.2-75.2); HEMOGLOBIN 14.2 g/dl (12.5-16.0); LYMPH # 1.7 K/mm3 (1.2-3.4); LYMPH % 18.4 % (20.0-51.0); MEAN CELL VOLUME 86 fl (80.0-100.0); MEAN CORPUSCULAR HEMOGLOBIN 29 pg (27-31); MEAN CORPUSCULAR HGB CONC 34 g/dl (33.0-37.0); MONO # 1.3 K/mm3 (0.1-0.6); PLATELET COUNT 321 K/mm3 (130-400); RED BLOOD COUNT 4.88 M/mm3 (4.10-5.30); REDCELL DISTRIBUTION WIDTH-CV 13.6 % (11.5-14.5)
[2021-11-16 18:54] LABS: ALBUMIN 2.8 gm/dL (3.5-5.0); CREATININE, serum 1.67 mg/dL (0.57-1.11); PHOSPHOROUS 4.9 mg/dL (2.3-4.7)
[2021-11-16 19:05] LABS: TROPONIN-I 1.133 ng/mL (0.00-0.033)
[2021-11-16 20:24] LABS: COLLECTION METHOD CLEAN CATCH
[2021-11-16 20:36] LABS: MUCOUS Present (NOT PRESENT); PH 5 (5-8); SQUAMOUS EPITHELIAL 0-2 /hpf (0-10); URINE APPEARANCE Hazy (CLEAR/HAZY); URINE BACTERIA Many /hpf (NONE SEEN); URINE BLOOD Negative (NEGATIVE); URINE COLOR Yellow (YELLOW); URINE GLUCOSE 3+ (NEGATIVE); URINE KETONE 2+ (NEGATIVE); URINE NITRATE Positive (NEGATIVE); URINE PROTEIN(semi-quant) 2+ (NEGATIVE); URINE UROBILINOGEN Negative (NEGATIVE)
[2021-11-16 20:39] LABS: TRICYCLIC ANTIDEPRESS URINE NEGATIVE
[2021-11-16 22:17] LABS: CALCIUM 8.3 mg/dL (8.4-10.2); CREATININE, serum 1.75 mg/dL (0.57-1.11); POTASSIUM 4.3 mmol/L (3.5-4.5)
[2021-11-16 22:28] LABS: TROPONIN-I 0.872 ng/mL (0.00-0.033)
[2021-11-16 23:50] VITALS: BP 119/81; PULSE 115
== END 2021-11-16 23:50 | disposition short-term general hospital (02) ==
LOC: COL.ER 18:12
PROVIDERS: Emergency Medicine
DX: I21.A1 Myocardial infarction type 2 (principal); R09.02 Hypoxemia; E11.10 Type 2 diabetes mellitus with ketoacidosis without coma; Z79.4 Long term (current) use of insulin
CPT/HCPCS: J0696; J1815; J3480; J7120

== ENCOUNTER 2021-12-17 08:40 | Emergency (ER) | payer BC ==
[~2021-12-17] VITALS: Ht 165.1 cm; Wt 70.5 kg
[2021-12-17 08:48] VITALS: TEMP 97.6
[2021-12-17 09:17] LABS: BASO # 0.1 K/mm3 (0.0-0.2); BASO % 1.4 % (0.0-2.0); EOS # 0.3 K/mm3 (0.0-0.7); EOS % 4.6 % (0.0-4.0); GRAN # 3.2 K/mm3 (1.4-6.5); GRAN % 53.9 % (42.2-75.2); HEMATOCRIT 36.6 % (37.0-47.0); HEMOGLOBIN 11.7 g/dl (12.5-16.0); LYMPH # 1.9 K/mm3 (1.2-3.4); LYMPH % 32.9 % (20.0-51.0); MEAN CELL VOLUME 90 fl (80.0-100.0); MEAN CORPUSCULAR HEMOGLOBIN 29 pg (27-31); MEAN CORPUSCULAR HGB CONC 32 g/dl (33.0-37.0); MEAN PLATELET VOLUME 10.3 fl (7.4-10.4); MONO # 0.4 K/mm3 (0.1-0.6); PLATELET COUNT 194 K/mm3 (130-400); RED BLOOD COUNT 4.05 M/mm3 (4.10-5.30)
[2021-12-17 09:34] LABS: ALBUMIN 3.2 gm/dL (3.5-5.0); BILIRUBIN,TOTAL 0.3 mg/dL (0.2-1.2); CALCIUM 8.2 mg/dL (8.4-10.2); CREATININE, serum 2.44 mg/dL (0.57-1.11); POTASSIUM 4.4 mmol/L (3.5-4.5); TOTAL PROTEIN 6.2 gm/dL (6.2-8.1)
[2021-12-17 11:29] VITALS: BP 136/95; PULSE 87
== END 2021-12-17 11:29 | disposition home or self-care (01) ==
LOC: COL.ER 08:40
PROVIDERS: Personal Emergency Response Attendant
DX: N18.9 Chronic kidney disease, unspecified (principal); Z86.16 Personal history of COVID-19; Z28.310 Unvaccinated for COVID-19
CPT/HCPCS: J7030

== ENCOUNTER 2022-07-19 07:17 | Emergency (ER) | payer BC ==
[~2022-07-19] VITALS: Ht 165.1 cm; Wt 68.2 kg
[2022-07-19 08:20] LABS: BASO # 0.1 K/mm3 (0.0-0.2); BASO % 0.7 % (0.0-2.0); EOS # 0.3 K/mm3 (0.0-0.7); EOS % 2.5 % (0.0-4.0); GRAN % 64.7 % (42.2-75.2); LYMPH # 2.6 K/mm3 (1.2-3.4); LYMPH % 24.3 % (20.0-51.0); MEAN CELL VOLUME 88 fl (80.0-100.0); MEAN CORPUSCULAR HEMOGLOBIN 30 pg (27-31); MEAN CORPUSCULAR HGB CONC 34 g/dl (33.0-37.0); MEAN PLATELET VOLUME 9.9 fl (7.4-10.4); MONO # 0.8 K/mm3 (0.1-0.6); MONO % 6.9 % (1.7-9.3); PLATELET COUNT 275 K/mm3 (130-400); RED BLOOD COUNT 3.72 M/mm3 (4.10-5.30)
[2022-07-19 08:29] LABS: HEMATOCRIT 32.8 % (37.0-47.0)
[2022-07-19 08:52] LABS: ALBUMIN 2.4 gm/dL (3.5-5.0); BILIRUBIN,TOTAL 0.2 mg/dL (0.2-1.2); CREATININE, serum 2.76 mg/dL (0.57-1.11); POTASSIUM 3.8 mmol/L (3.5-4.5); TOTAL PROTEIN 6.3 gm/dL (6.2-8.1)
[2022-07-19] MEDS ORDERED: ZITHROMAX Z PA250 MG PO (09:08)
[2022-07-19] MEDS ORDERED: PREDNISONE20 MG PO (09:08)
[2022-07-19 09:13] VITALS: BP 172/109; PULSE 104; TEMP 98.2
== END 2022-07-19 09:13 | disposition home or self-care (01) ==
LOC: COL.ER 07:17
PROVIDERS: Family Medicine
DX: J20.9 Acute bronchitis, unspecified (principal); I12.9 Hypertensive chronic kidney disease with stage 1 through stage 4 chronic kidney disease, or unspecified chronic kidney disease; E10.22 Type 1 diabetes mellitus with diabetic chronic kidney disease; N18.9 Chronic kidney disease, unspecified; Z79.899 Other long term (current) drug therapy; Z87.09 Personal history of other diseases of the respiratory system; Z20.822 Contact with and (suspected) exposure to COVID-19
CPT/HCPCS: J2930

== ENCOUNTER 2022-08-05 11:24 | Emergency (ER) | payer BC ==
[~2022-08-05] VITALS: Ht 165.1 cm; Wt 70.5 kg
[~2022-08-05 11:24] MED LIST changes: +PREDNISONE20 MG PO; +ZITHROMAX Z PA250 MG PO
[2022-08-05 11:32] VITALS: TEMP 98.1
[2022-08-05 12:06] LABS: COLLECTION METHOD CLEAN CATCH
[2022-08-05 12:09] LABS: BASO # 0.1 K/mm3 (0.0-0.2); BASO % 0.6 % (0.0-2.0); EOS # 0.2 K/mm3 (0.0-0.7); EOS % 2.4 % (0.0-4.0); GRAN # 5.5 K/mm3 (1.4-6.5); LYMPH # 1.6 K/mm3 (1.2-3.4); LYMPH % 20.7 % (20.0-51.0); MEAN CELL VOLUME 92 fl (80.0-100.0); MEAN CORPUSCULAR HGB CONC 33 g/dl (33.0-37.0); MEAN PLATELET VOLUME 10.2 fl (7.4-10.4); MONO # 0.5 K/mm3 (0.1-0.6); MONO % 5.8 % (1.7-9.3); PLATELET COUNT 215 K/mm3 (130-400); RED BLOOD COUNT 3.08 M/mm3 (4.10-5.30); REDCELL DISTRIBUTION WIDTH-CV 12.7 % (11.5-14.5)
[2022-08-05 12:13] LABS: HEMATOCRIT 28.4 % (37.0-47.0); HEMOGLOBIN 9.3 g/dl (12.5-16.0); MEAN CORPUSCULAR HEMOGLOBIN 30 pg (27-31)
[2022-08-05 12:14] LABS: MUCOUS Present (NOT PRESENT); SQUAMOUS EPITHELIAL 0-2 /hpf (0-10); URINE BACTERIA None Seen /hpf (NONE SEEN); URINE WBC 0-2 /hpf (0-2)
[2022-08-05 12:15] LABS: URINE APPEARANCE Clear (CLEAR/HAZY); URINE COLOR Yellow (YELLOW); URINE GLUCOSE 2+ (NEGATIVE); URINE KETONE Negative (NEGATIVE); URINE NITRATE Negative (NEGATIVE); URINE PROTEIN(semi-quant) 3+ (NEGATIVE); URINE UROBILINOGEN 0.2 E.U/dL (0.2-1.0)
[2022-08-05 12:16] LABS: URINE BLOOD 1+ (NEGATIVE)
[2022-08-05 12:22] LABS: ALBUMIN 2.7 gm/dL (3.5-5.0); BILIRUBIN,TOTAL 0.3 mg/dL (0.2-1.2); CALCIUM 8.5 mg/dL (8.4-10.2); CREATININE, serum 3.45 mg/dL (0.57-1.11); POTASSIUM 4.9 mmol/L (3.5-4.5); TOTAL PROTEIN 6.1 gm/dL (6.2-8.1)
[2022-08-05 13:34] VITALS: BP 178/91; PULSE 94
[2022-08-05] MEDS ORDERED: SODIUM BICARBO650 MG PO (13:36)
[2022-08-09] MEDS ORDERED: ZOFRAN ODT4 MG PO (17:55)
== END 2022-08-05 13:36 | disposition home or self-care (01) ==
LOC: COL.ER 11:24
PROVIDERS: Emergency Medicine
DX: N17.9 Acute kidney failure, unspecified (principal); E87.8 Other disorders of electrolyte and fluid balance, not elsewhere classified; I12.9 Hypertensive chronic kidney disease with stage 1 through stage 4 chronic kidney disease, or unspecified chronic kidney disease; E10.22 Type 1 diabetes mellitus with diabetic chronic kidney disease; N18.9 Chronic kidney disease, unspecified; Z79.899 Other long term (current) drug therapy; Z28.310 Unvaccinated for COVID-19
CPT/HCPCS: J7030

== ENCOUNTER → 2023-02-13 | Outpatient (CLI) | payer BC ==
[~2023-02-13] MED LIST changes: +AMOXICILLIN/CLA1 TA1 PO; +ASPIRIN E.C. 8181 MG PO; +ATORVASTATIN PO; +CALPHRON667 MG PO; +CLARITIN 1010 MG/TAB PO; +COLACE 100100 MG/CAP PO; +FUROSEMIDE PO; +HUMULIN N PE100 U/ML SQ; +KAPSPARGO SPRIN50 MG PO; +LASIX 40MG TABL40 MG PO; +LIPITOR 40MG TA40 MG PO; +LIPITOR 80MG80 MG PO; +MIRALAX PA17 GM/Dose PO; +MIRALAX PO; +MUCUS RELIEF400 M1 PO; +NORCO 325 MG-51 TAB PO; +NORVASC 10MG10 MG PO; +NOVOLOG 100U100 U/M1 SQ; +PHOSLO667 MG PO; +PHOSPHORUS BINDER PO; +PLAVIX 75MG TAB75 MG PO; +SODIUM BICARBO650 MG PO; +TOPROL XL100 MG PO; +TYLENOL 325MG325 MG PO; +TYLENOL 500MG500 MG PO; +ZESTRIL 10MG10 MG PO; +ZOFRAN ODT4 MG PO
== END ==
LOC: COL.RAD 08:47
DX: T85.611A Breakdown (mechanical) of intraperitoneal dialysis catheter, initial encounter (principal)

== ENCOUNTER 2023-04-13 13:15 | Inpatient (IN) | payer BC ==
[~2023-04-13] VITALS: Ht 165.1 cm; Wt 77.0 kg
[~2023-04-13 13:15] MED LIST changes: +AURYXIA1 GM PO; +LASIX 80MG TABL80 MG PO
[2023-04-13 18:00] VITALS: BP 153/95; PULSE 87; TEMP 97.7
[2023-04-13] MEDS ORDERED: BACITUD TOP (18:18)
[2023-04-13] MEDS ORDERED: OMNICEF 300MG300 MG PO (18:20)
[2023-04-13] MEDS ORDERED: NATURAL IRON65 MG PO (18:22)
[2023-04-13] MEDS ORDERED: XOPENEX1.25 MG/0. INH (18:23)
[2023-04-13] MEDS ORDERED: NYSTATIN100000 U/1 TP (18:25)
[2023-04-13 18:30] VITALS: BP_SYST 153
--- NOTE | 2023-04-13 19:30 | NUR ---
PT RESTING IN BED. VERY QUIET. SLEEPY. O2 STARTED AT 2L NC FOR THE HS.
--- NOTE | 2023-04-13 21:02 | NUR ---
GAVE NORCO 5/325 AN HR AGO. PT WAKES UP BUT FALLS BACK TO SLEEP DURING CONVERSATION. PT REPORTS PAIN STILL AT LEVEL 6-7. O2 SAT 97% ON 2L NC.
[2023-04-13] MEDS ORDERED: IPRATROPIUM BROM3 M1 IH (21:30)
[2023-04-13] MEDS ORDERED: MUCUS RELIEF200 MG PO (21:38)
[2023-04-13] MEDS ORDERED: HEPARIN SOD5000 U/ML SQ ×2 (21:46→21:48)
[2023-04-13] MEDS ORDERED: LEVEMIR100 U/ML SQ (22:07)
[2023-04-13] MEDS ORDERED: ZOFRAN ODT4 MG PO (22:14)
[2023-04-13 23:11] VITALS: BP 159/85
--- NOTE | 2023-04-13 23:48 | NUR ---
PT NAUSEAETED. SEE MAR FOR ZOFRAN ODT. UP TO BR. FAIRLY STEADY GAIT. INCONTINENT IN BRIEF. VOIDED 150CC CLEAR YELLOW URINE. COOCYX AREA SL RED. SKIN CARE PRODUCTS INTRODUCED. PT NEEDS IMPROVED KAMLA CARE. DRIED STOOL IN RECTAL AREA. CHANGED TO YELLOW GOWN. NOTIFIED RT FOR SVN TX. PT WHEEZING AND COARS NONPRODUCTIVE COUGH. ACCUCHECK 150.
--- NOTE | 2023-04-14 03:39 | NUR ---
PT C/O BACK PAIN. LEVEL6/10. TOO EARLY FOR NORCO. GAVE TYLENOL 650MG.M PT HAVING A HARD TIME STAYING AWAKE. O2 SAT 90%.
[2023-04-14 05:08] VITALS: BP 121/76; PULSE 95; TEMP 97.9
[2023-04-14 07:00] VITALS: BP_SYST 121
--- NOTE | 2023-04-14 10:20 | NUR ---
Dialysis note Pt arrived to dialysis via WC pt transfered to dialysis chair. Goal set for 2kg and 2 kg achieved. Pt tolerated tx well. Pt dcd back to room without complaints.
--- NOTE | 2023-04-14 15:32 | NUR ---
restuarant crew worker met with patient and welcomed her to the IPR unit. Garcia is currently staying with her parents in [place]. She expressed everything she needs at the house is on the main floor and there is a few steps into the house. PCP is Sb, Pharmacy is [facility] [address]. Patient reports his diabetic supplies and medications are expensive. SW provided information on [facility] and recommended speaking with the pharmacy and/or physician to determine if there is lower cost options available for her medications. Patient does not have a DPOA-HC and did not wish to complete one. Patient has no DME at home and reports she was independent with ADLS prior to hospital stay. Patient reports her parents can transport her to and from appointments as needed. Patient would like to return home at time of discharge.
--- NOTE | 2023-04-14 17:51 | NUR ---
RECIEVED REPORT FROM PICK UP TRUCK DRIVER NURSESTEVO.
[2023-04-14 18:06] VITALS: BP 107/70; PULSE 97; TEMP 98.2
--- NOTE | 2023-04-14 18:06 | NUR ---
UPON TAKING OVER CARE FOR THIS PT, THE DIALYSIS NURSE CALLED AT 0645 TO ASK FOR HER TO BE BROUGHT TO THE DIALYIS ROOM BETWEEN [phone]. AFTER HAVING HER SIGN THE CONSENT FORM. THE PT WAS IN DIAYSIS FOR APROXIMATELY 3 HOURS. SHE THEN HAD HER THERAPIES AFTERWARD. SHE WAS A BIT TIRED BUT GOT THROUGH IT WITH PAIN MEDICINE. SHIFT ASSESSMENT COMPLETE,VSS. MEDICATED PER EMAR, PAIN RATED 10/10 AND SHWE WAS GIVEN PRN NORCO. PT IS STRICT FUIID RESTRICION AND I&O. SHE HAS BEEN PRETTY COMPLIANT WITH HER DIET AND IS GETTING PAIN RELIEVED BY PAIN MEDS. CALL LIGHT WITHIN REACH, BED ALARM ACTIVATED. DENIES FURTHER NEEDS AT THIS TIME.
[2023-04-14 19:23] VITALS: BP_SYST 107
--- NOTE | 2023-04-14 21:00 | NUR ---
PT RESTING IN BED. A&O AND DROWSY. VSS ON 2L/NC, STATES SHE FEELS SOB WITH EXERTION BUT THE OXYGEN IS HELPING. DENYING PAIN AT THIS TIME. C/O N/V, GIVEN PRN ZOFRAN. MARY KATE INTACT TO TOP OF SCALP. DIALYSIS CATH TO RLQ ABD & RT CHEST BOTH DRESSINGS CD&I. PT AMBULATED TO RESTROOMW WITH STANDBY ASSIST & STEADY GAIT. FALL PRECAUTIONS IN PLACE & CALL LIGHT IN REACH. PT DENYING FURTHER NEEDS.
[2023-04-15 05:44] VITALS: BP 170/93; PULSE 90; TEMP 98
[2023-04-15 06:26] VITALS: BP 168/84
--- NOTE | 2023-04-15 06:28 | NUR ---
PT RESTING IN BED WITH EVEN & UNLABORED RESP. DENYING PAIN AT THIS TIME. CALL LIGHT IN REACH & FALL PRECAUTIONS IN PLACE.
[2023-04-15 07:00] VITALS: BP_SYST 168
--- NOTE | 2023-04-15 11:40 | NUR ---
Data: Electric Deicer Inspector attempted visit. Assessment: Patient was at group therapy. Plan of Care: Chaplains will remain available as needed/desired while Patient is admitted to this hospital.
[2023-04-15 17:12] VITALS: BP 179/93; PULSE 92; TEMP 98.5
[2023-04-15 19:00] VITALS: BP_SYST 179
[2023-04-16 06:09] VITALS: BP 177/94; PULSE 85; TEMP 98.6
[2023-04-16 07:00] VITALS: BP_SYST 177
--- NOTE | 2023-04-16 08:39 | NUR ---
PT ALERT AND ORIENTED. IN A CHEERFUL MOOD THIS MORNING AND HAPPY WITH HER BREAKFAST. SHIFT ASSESSMENT COMPLETE, MEDICATED PER EMAR. HYPERTENSIVE THIS AM PROVIDER NOTIFIED. 100ML FLUID RESTRICTION ENFORCED. PAIN 2/10 IN CLAVICLE. EATING BREAKFAST IN BED. ON 1 LITER O2 VIA NC. DENIES NEED FOR ANYTHING FURTHER. CALL LIGHT WITHIN REACH BED ALARM SET.
[2023-04-16 14:27] VITALS: BP 160/86
--- NOTE | 2023-04-16 16:03 | NUR ---
AFTER HOSPITALIST ROUNDED ON PT THIS AFTERNOON HE DECIDED HED LIKE TO WEAN HER OFF OXYGEN, OXYGEN WAS TRUNED OFF BY HOSPITALIST PER PT REPORT. I WAS NOT NOTIFIED OF SUCH AND UPON RT CHECKING PT SAT WAS FOUND TO BE 77%. PT PUT BACK ON 2 LITERS OF OXYGEN AND REQUIRES O2 TO STAY ABOVE 90% W/ ACTIVITY OF SLEEPING.
[2023-04-16 16:52] VITALS: BP 181/90; PULSE 95; TEMP 98.1
[2023-04-16 19:00] VITALS: BP_SYST 181
[2023-04-16 20:09] VITALS: BP 172/91; PULSE 91; TEMP 99
[2023-04-17] VITALS (10 sets, daily range): BP systolic 154–194; BP diastolic 86–106; PULSE 81–91; TEMP 98–98.2
--- NOTE | 2023-04-17 04:39 | NUR ---
bp elevated, checked manual and on dynamap, prn hydralazine given, pt states it usually comes down after dialysis. monitoring VS q4hrs
--- NOTE | 2023-04-17 08:22 | NUR ---
RECIEVED REPORT FROM ARTI ROYAL RN
--- NOTE | 2023-04-17 08:33 | NUR ---
PT ALERT AND ORIENTED THIS MORNING, VSS, BP ELEVEATED TREATED PER EMAR. REPORTS SHE HAD A RESTFUL NIGHT. O2 IS OFF DURING THE DAY BUT RT SUGGESTED I ASK ABOUT NOCTRNAL O2 TRACING. SHIFT ASSESSMENT COMPLETE, SEE DOCUMENTATION. PAIN RATED 7/10. DENIES NEED FRO ANYTHING FURTHER. CALL LIGHT WITHIN REACH, BED ALARM SET.
--- NOTE | 2023-04-17 17:53 | NUR ---
PT BP FOUND TO BE 194/98 W C/O FERRERA. PER DR MINGO DEVINE TO GIVE METOPROLOL EARLY. WILL RECHECK IN 1 HOUR.
--- NOTE | 2023-04-17 19:02 | NUR ---
report received from paul garcia. pt resting in bed and reports she is very tired. pt denies pain. bed alarm on. call light in reach. all needs met at this time.
--- NOTE | 2023-04-17 21:13 | NUR ---
shift assessment complete, see documentation. pt reports 5/10 back pain. prn norco administered per orders for pain. pt ambulated sba to bathroom with steady gait. rt reports pt desatting and is now on 1L NC and 2L NC for bathroom use. pt now back in bed. pt tolerated has meds well. bed alarm on. call light in reach. all needs met at this time.
--- NOTE | 2023-04-17 23:35 | NUR ---
pt bp running 190/98. prn hydralazine administered per orders. pt asymptomatic. bed alarm on. call light in reach. all needs met at this time.
[2023-04-18] VITALS (10 sets, daily range): BP systolic 150–185; BP diastolic 86–93; PULSE 81–96; TEMP 98–98.4
--- NOTE | 2023-04-18 06:07 | NUR ---
second dose of prn hydralazine administered per orders at 0500. pt systolic bp remains high at 173 but patient is still asymptomatic. all other vss. pt finally had a bowel movement. pt now back in bed. bed alarm on. call light in reach. all needs met at this time.
--- NOTE | 2023-04-18 09:31 | NUR ---
SHIFT ASSESSMENT COMPLETE. PATIENT UP TO SIDE OF BED REQUESTING TO GO TO RESTROOM. PATIENT AMBULATED IND WITH NO ISSUES AT THIS TIME. MORNING MEDS GIVEN PER ORDERS. PATIENT REQUESTING PAIN MEDS FOR PAIN 07/25. PATIENT HAS NO REQUEST AT THIS TIME. CALL LIGHT IN REACH.
--- NOTE | 2023-04-18 12:51 | NUR ---
Has lack of transportation kept you from medical appts, meetings, work, or from getting things needed for daily living? NO How often do you feel lonely or isolated from those around you? RARELY Over the past 5 days, how much of the time has pain made it hard for you to sleep? OCCASIONALLY Over the past 5 days, how often have you limited your participation in therapy due to pain? RARELY/NOT AT ALL Over the past 5 days, how often have you limited your day-to-day activities because of pain? RARELY/NOT AT ALL Have you had 2 or more falls in the past year or any fall with an injury? NO Did you have major surgery during the 100 days prior to admission? NO
--- NOTE | 2023-04-18 16:23 | NUR ---
composite layup worker attempted to meet with patient, but she was sound asleep at this time.
--- NOTE | 2023-04-18 16:24 | NUR ---
The Interdisciplinary team discussed making the patient Independent in her room during Team Huddle. Her current Burgess Fall Score is low at 0 & Tinetti score was low at 27. She is currently not using any device for mobility & self care & demonstrates good safety. The team feels she is capable of being Independent in her room at this time as she is aware of her deficits/limitations & cognitively able to problem solve her situations.--Sonal Skinner, PD
--- NOTE | 2023-04-18 19:07 | NUR ---
report received from marisol crandall. pt resting in bed relaxing. pt denies pain. pt ambulating in room ind with steady gait. call light in reach. all needs met at this time.
--- NOTE | 2023-04-18 22:16 | NUR ---
shift assessment complete, see documentation. pt continues to deny pain. pt is very excited to go home tomorrow. pt tolerated hs meds well. pt having oxygen study done by rt. call light in reach. all needs met at this time.
[2023-04-19 04:00] VITALS: BP 156/87; PULSE 81; TEMP 98.2
[2023-04-19 06:52] LABS: BASO # 0.1 K/mm3 (0.0-0.2); BASO % 1.1 % (0.0-2.0); EOS # 0.5 K/mm3 (0.0-0.7); EOS % 5.1 % (0.0-4.0); GRAN # 6.3 K/mm3 (1.4-6.5); GRAN % 64.3 % (42.2-75.2); LYMPH # 2.1 K/mm3 (1.2-3.4); MEAN CELL VOLUME 94 fl (80.0-100.0); MEAN CORPUSCULAR HGB CONC 32 g/dl (33.0-37.0); MONO # 0.8 K/mm3 (0.1-0.6); MONO % 7.8 % (1.7-9.3); PLATELET COUNT 317 K/mm3 (130-400); RED BLOOD COUNT 2.73 M/mm3 (4.10-5.30); REDCELL DISTRIBUTION WIDTH-CV 15.5 % (11.5-14.5)
[2023-04-19 06:57] LABS: HEMATOCRIT 25.6 % (37.0-47.0); HEMOGLOBIN 8.3 g/dl (12.5-16.0); MEAN CORPUSCULAR HEMOGLOBIN 30 pg (27-31)
[2023-04-19 07:07] VITALS: BP_SYST 156
--- NOTE | 2023-04-19 07:08 | NUR ---
Shift report received from night RN. No events reported overnight. Pt sleeping supine in bed w/ even & unlabored resps. Call light in reach. Pt remains on Mod I status in room. Plan is for DC to home today per shift report.
[2023-04-19 07:10] LABS: CALCIUM 8.6 mg/dL (8.4-10.2); CREATININE, serum 4.74 mg/dL (0.57-1.11)
[2023-04-19 08:02] VITALS: BP 171/91; PULSE 85; TEMP 99.3
--- NOTE | 2023-04-19 08:23 | NUR ---
Pt sitting up in bed to eat breakfast independently. She reports left facial/head pain & "full body pain" at 6/10. [place] given per PRN order. Other needs denied. Call light in reach. Remains on Mod I status in room.
--- NOTE | 2023-04-19 08:45 | NUR ---
slab worker met with patient and discussed her discharge today. Pt was excited to go and smiled. She said she is waiting to hear from the RN when her dialysis is, then she can arrange with her parents the ride. SW asked if she needed anything or had concerns. She declined. Discharge Plan: Home with parents
[2023-04-19 09:14] VITALS: BP 130/81
[2023-04-19 10:41] LABS: ALBUMIN 2.2 gm/dL (3.5-5.0); PHOSPHOROUS 2.2 mg/dL (2.3-4.7)
[2023-04-19] MEDS ORDERED: NOVOLOG FLEX100 U/ML SQ (11:03)
[2023-04-19] MEDS ORDERED: NORVASC 10MG10 MG PO (11:16)
[2023-04-19] MEDS ORDERED: PRINIVIL10 MG PO (11:17)
[2023-04-19 11:19] VITALS: BP 163/83; PULSE 86; TEMP 98.2
[2023-04-19] MEDS ORDERED: NORCO 325 MG-51 TAB PO (11:20)
[2023-04-19] MEDS ORDERED: FORTICAL200 IU/ACT NS (11:20)
--- NOTE | 2023-04-19 11:55 | NUR ---
Pt off unit for dialysis.
--- NOTE | 2023-04-19 15:13 | NUR ---
Dialysis note Pt arrived to tx via WC goal set for 1.5 kg and 1.5 kg removed. pt dcd back to room. Report given to primary RN.
--- NOTE | 2023-04-19 15:18 | NUR ---
Pt back in her room to gather belongings after dialysis. Father is on his way to pick her up for DC to home. DC summary reviewed w/ the pt. She had no further questions. Valuable items denied.
--- NOTE | 2023-04-19 16:14 | NUR ---
Pt ambulated off unit accompanied by RN to vehicle for ride home.
--- NOTE | 2023-04-19 16:44 | NUR ---
chore worker attended team meeting regarding patient. She will discharge home today with her parents as support. She is independent in her room with no DME needs. Discharge Plan: Home today with parents
--- NOTE | 2023-04-20 12:30 | NUR ---
Discharge QIM scores were reviewed by the team. Code of 6 chosen for shower/bathe self was determined by team discussion to be the most usual performance for this patient during the discharge assessment period. Code of 6 chosen for upper body dressing was determined by team discussion to be the most usual performance for this patient during the discharge assessment period. Code of 6 chosen for putting on/taking off footwear was determined by team discussion to be the most usual performance for this patient during the discharge assessment period. Code of 6 chosen for walking 10 feet was determined by team discussion to be the most usual performance for this patient during the discharge assessment period. Code of 6 chosen for walking 150 feet was determined by team discussion to be the most usual performance for this patient during the discharge assessment period.--Sonal Skinner, PD
== END 2023-04-19 16:07 | disposition home or self-care (01) | DRG 559 ==
PROVIDERS: Physical Medicine & Rehabilitation Sports Medicine; ADMIT Internal Medicine
DX: S42.002D Fracture of unspecified part of left clavicle, subsequent encounter for fracture with routine healing (principal); N18.6 End stage renal disease; I13.2 Hypertensive heart and chronic kidney disease with heart failure and with stage 5 chronic kidney disease, or end stage renal disease; N39.0 Urinary tract infection, site not specified; R26.89 Other abnormalities of gait and mobility; E10.22 Type 1 diabetes mellitus with diabetic chronic kidney disease; I50.9 Heart failure, unspecified; S36.039D Unspecified laceration of spleen, subsequent encounter; S12.500D Unspecified displaced fracture of sixth cervical vertebra, subsequent encounter for fracture with routine healing; R13.10 Dysphagia, unspecified; J30.2 Other seasonal allergic rhinitis; E87.5 Hyperkalemia; I25.2 Old myocardial infarction; D63.1 Anemia in chronic kidney disease; I25.10 Atherosclerotic heart disease of native coronary artery without angina pectoris; R53.81 Other malaise; E78.5 Hyperlipidemia, unspecified; J39.8 Other specified diseases of upper respiratory tract; Z79.82 Long term (current) use of aspirin; Z99.2 Dependence on renal dialysis; Z79.899 Other long term (current) drug therapy; Z79.4 Long term (current) use of insulin; Z79.2 Long term (current) use of antibiotics; Z87.891 Personal history of nicotine dependence; Z91.048 Other nonmedicinal substance allergy status; Y92.410 Unspecified street and highway as the place of occurrence of the external cause; V49.40XD Driver injured in collision with unspecified motor vehicles in traffic accident, subsequent encounter; Z74.09 Other reduced mobility; Z95.5 Presence of coronary angioplasty implant and graft
CPT/HCPCS: J1644; J1815; J7030; Q3014; Q5105

== ENCOUNTER 2023-05-03 10:20 | Day surgery (SDC) | payer BC ==
[~2023-05-03] VITALS: Ht 165.1 cm; Wt 74.7 kg
[~2023-05-03 10:20] MED LIST changes: +BACITUD TOP; +FORTICAL200 IU/ACT NS; +HEPARIN SOD5000 U/ML SQ; +IPRATROPIUM BROM3 M1 IH; +MUCUS RELIEF200 MG PO; +NATURAL IRON65 MG PO; +NYSTATIN100000 U/1 TP; +OMNICEF 300MG300 MG PO; +XOPENEX1.25 MG/0. INH
[2023-05-03 12:12] VITALS: BP 163/81; PULSE 91; TEMP 97.9
[2023-05-03 12:28] LABS: CALCIUM 8.8 mg/dL (8.4-10.2); CREATININE, serum 7.33 mg/dL (0.57-1.11)
[2023-05-03] MEDS ORDERED: PLAVIX 75MG TAB75 MG PO (12:54)
[2023-05-03 14:00] VITALS: BP 147/71; PULSE 84; TEMP 97.9
[2023-05-03 14:15] VITALS: BP 150/74; PULSE 84
--- NOTE | 2023-05-03 15:04 | NUR ---
1400-REPORT OBTAINED FROM ALLEN LAROSE. PATIENT ARRIVED VIA CART TO [facility] [place], ALERT AND ORIENTED ON ARRIVAL. PATIENT DENIES PAIN OR NAUSEA. VITAL SIGNS TAKEN, VSS. INCISION SITES CDI, DRESSING TO PERITONEAL DIALYSIS CATHETER, CDI. CHRISSY HUGGER RAMINS IN PLACE FOR COMFORT. PATIENT NOTIFIED MOTHER FOR RIDE HOME AND DISCUSSED PLAN OF CARE. PATIENT TO ATTEND OUTPATIENT DIALYSIS FOLLOWING DISCHARGE. 1415-PATIENT TOLERATING PO INTAKE, DENIES COMPLAINTS. VSS. 1425-DISCHARGE INSTRUCTIONS REVIEWED WITH PT, QUESTIONS INVITED. IV CATHETER DISCONTINUED, TIP INTACT. PRESSURE HELD AND BANDAGE APPLIED. PATIENT CHANGED CLOTHING INDEPENDENTLY AND AMBULATED AROUND ROOM WITH STEADY GAIT. 1440-PATIENT DISCHARGED HOME TO [facility] VIA WHEELCHAIR, ACCOMPANIED BY MOTHER. ALL BELONGINGS AND DC PAPERWORK SENT WITH PT
== END 2023-05-03 14:40 | disposition home or self-care (01) ==
LOC: SDCO 10:20
PROVIDERS: Surgery
DX: T85.691A Other mechanical complication of intraperitoneal dialysis catheter, initial encounter (principal); K66.8 Other specified disorders of peritoneum; E10.22 Type 1 diabetes mellitus with diabetic chronic kidney disease; E10.319 Type 1 diabetes mellitus with unspecified diabetic retinopathy without macular edema; N18.6 End stage renal disease; Z99.2 Dependence on renal dialysis; Z79.4 Long term (current) use of insulin
CPT/HCPCS: J0690; J1100; J2405; J2704; J3010; J7030

== ENCOUNTER 2023-05-10 09:37 | Day surgery (SDC) | payer BC ==
[2023-05-10] VITALS (7 sets, daily range): BP systolic 142–166; BP diastolic 75–94; PULSE 76–97; TEMP 97.9–98.7
[~2023-05-10] VITALS: Ht 165.1 cm; Wt 70.5 kg
[~2023-05-10 09:37] MED LIST changes: +NS 1,000 ML IV SCH
[2023-05-10] MEDS ORDERED: PRINIVIL10 MG PO (11:05)
[2023-05-10 11:14] LABS: CALCIUM 9.2 mg/dL (8.4-10.2); CREATININE, serum 4.49 mg/dL (0.57-1.11); POTASSIUM 4.7 mmol/L (3.5-4.5)
[2023-05-10] MEDS ORDERED: fentaNYL 50 MCG/ML 2 ML VIAL ONE (12:12)
[2023-05-10] MEDS ORDERED: Lidocaine PF 2% (20 MG/ML) 5 ML VIAL ONE (12:12)
[2023-05-10] MEDS ORDERED: Rocuronium 50 MG/5 ML Multi-Dose VIAL ONE (12:12)
[2023-05-10] MEDS ORDERED: Ondansetron 4 MG/2 ML VIAL ONE (12:36)
[2023-05-10] MEDS ORDERED: dexAMETHasone 10 MG/ML VIAL ONE (12:36)
[2023-05-10] MEDS ORDERED: Labetalol 100 MG/20 ML Multi-Dose VIAL ONE (12:40)
[2023-05-10] MEDS ORDERED: Topical Skin Adhesive 1 EACH (1 ML) TOP ONE (13:12)
--- NOTE | 2023-05-10 16:49 | NUR ---
[id number]: PT TO [place] [facility] FROM PACU S/P EXPLARATORY LAP A&O, PLACED ON MONITOR, VSS ON RA RECEIVED REPORT AND ASSUMED CARE OF PT FROM RN AWA 2 TROCAR SITES COVERED WITH SKIN GLUE -CDI DENIES COMPLAINT, CHRISSY SHEIKH BROUGHT TO [facility] FOR COMFORT PROVIDED FOOD/FLUIDS, TOLERATING WELL; GLUCOSE ON PHONE SADAF 188 PT TOOK HOME INSULIN/HOME MEDS WITH "MEAL" PROVIDED AND LATER NOTIFIED RN PLAN FOR HER FATHER TO PICK HER UP SOON HE IS ABLE PT HAS REMAINED A&O, NAD, VSS ON RA, TOLERATING PO, IS WITHOUT SIGNIFICANT COMPLAINT, WITH STEADY GAIT THRU OUT STAY 1500 IV D/C'D. D/C INSTRUCTIONS, ANY FOLLOW UP REVIEWED AND HANDED TO PT. ALL QUESTIONS AND CONCERNS ADDRESSED TO PT SATISFACTION. PT IS READY TO GO, JUST WAITING FOR RIDE, DOES NOT REQUIRE ANY FURTHER ASSIST. 1600 TAKEN TO EXIT VIA W/C WITH ALL BELONGINGS AND PAPERWORK IN HAND, ASSISTED INTO PASSENGER SEAT OF POV. DAD TO DRIVE HOME.
== END 2023-05-10 16:00 ==
LOC: SDCO 09:37
PROVIDERS: Nurse Anesthetist, Certified Registered
DX: I13.2 Hypertensive heart and chronic kidney disease with heart failure and with stage 5 chronic kidney disease, or end stage renal disease (principal); N18.6 End stage renal disease; E10.22 Type 1 diabetes mellitus with diabetic chronic kidney disease; E10.319 Type 1 diabetes mellitus with unspecified diabetic retinopathy without macular edema; Z79.82 Long term (current) use of aspirin; Z87.891 Personal history of nicotine dependence
CPT/HCPCS: J0690; J1100; J1920; J2405; J2704; J3010; J7030

== ENCOUNTER 2023-06-14 09:45 | Outpatient (RCR) | payer BC ==
[~2023-06-14 09:45] MED LIST changes: -NS 1,000 ML IV SCH
== END 2023-06-15 | disposition home or self-care (01) ==
LOC: WSPT
DX: S22.069D Unspecified fracture of T7-T8 vertebra, subsequent encounter for fracture with routine healing (principal); S22.079D Unspecified fracture of T9-T10 vertebra, subsequent encounter for fracture with routine healing; V89.2XXD Person injured in unspecified motor-vehicle accident, traffic, subsequent encounter

== ENCOUNTER 2023-07-03 10:30 | Outpatient (RCR) | payer BC | END 2023-07-16 | disposition home or self-care (01) | LOC: WSPT | DX: S22.059D Unspecified fracture of T5-T6 vertebra, subsequent encounter for fracture with routine healing (principal); S22.079D Unspecified fracture of T9-T10 vertebra, subsequent encounter for fracture with routine healing; X58.XXXD Exposure to other specified factors, subsequent encounter ==

== ENCOUNTER → 2023-08-10 | Outpatient (CLI) | payer BC | LOC: COL.RAD 10:39 | DX: R05.1 Acute cough (principal) ==

== ENCOUNTER 2023-09-27 13:32 | Observation (INO) | payer BC ==
[2023-09-27] VITALS (13 sets, daily range): BP systolic 112–225; BP diastolic 60–135; PULSE 82–94; TEMP 97.5–98.3
[~2023-09-27] VITALS: Ht 170.2 cm; Wt 69.3 kg
--- NOTE | 2023-09-27 14:20 | NUR ---
Pt arrived to unit via EMS. Pt did not go to ER per Dr. Hernandez's orders. Pt dry heaving and wretching intermittently. Pt asked orientation questions and answered all with no. Pt has on IV to right forearm. Dr. Hernandez notified that blood pressure is over 200 and pt came over with no orders. Orders to start nitro to keep SBP <150. Pt c/o of abdominal pain and curls up in a ball. Pt is afebrile. Pt states she just doesn't feel good over and over. No further orders from Dr. Hernandez who is admitting patient. Admission questions answered from patients dad, andrew who is at bedside. Dr. Carreno also consulted who placed several orders for lab, no acess at this time. Surgical consult placed for Dr. Hernandez to place line. Dr. Hernandez notifed of consult but is currently in a procedure and will come after he is finished.
[2023-09-27] MEDS ORDERED: Vancomycin 1.25 GM,Special Dose/Pharmacy Prepared 1.25 GM in NS 250 ML IV SCH (15:15)
[2023-09-27] MEDS ORDERED: Nitroglycerin/D5W 250 ML IV SCH (15:15)
[2023-09-27 15:30] LABS: ARTERIAL BLOOD GAS BASE EXCESS 0.3 (-2-2); ARTERIAL BLOOD GAS HCO3 24.8 meq/L (22-26); ARTERIAL BLOOD GAS PCO2 39.5 mmHg (35-45); ARTERIAL BLOOD GAS PO2 75.3 mmHg (80-100); ARTERIAL BLOOD GAS pH 7.42 (7.35-7.45)
[2023-09-27] MEDS ORDERED: GLUCOSE TABLETS CHEW (16:02)
[2023-09-27] MEDS ORDERED: CATAPRES 0.1MG0.1 MG PO (16:07)
[2023-09-27] MEDS ORDERED: hydrALAZINE 20 MG/ML 1 ML VIAL IV PRN (16:15)
[2023-09-27] MEDS ORDERED: niCARdipine 200 ML IV SCH (16:15)
[2023-09-27] MEDS ORDERED: Pantoprazole 40 MG in NS 10 ML IV SCH (16:37)
[2023-09-27] MEDS ORDERED: Ondansetron 4 MG/2 ML VIAL IV ONE (17:30)
[2023-09-27] MEDS ORDERED: LORazepam 2 MG/ML 1 ML VIAL IV ONE (18:30)
[2023-09-27] MEDS ORDERED: Dextrose (Glucose) 15 GM (4 x 3.75 GM) Chewable TABLET PACK PO PRN (19:00)
[2023-09-27] MEDS ORDERED: Dextrose 50% Water 25 GM/50 ML SYRINGE IV PRN (19:00)
[2023-09-27] MEDS ORDERED: Heparin 1,000 UNITS/ML 10 ML Multi-Dose VIAL IV SCH (19:00)
[2023-09-27] MEDS ORDERED: Glucagon 1 MG VIAL IM PRN (19:00)
[2023-09-27] MEDS ORDERED: Heparin 1,000 UNITS/ML 10 ML Multi-Dose VIAL ICA SCH (19:00)
--- NOTE | 2023-09-27 19:27 | NUR ---
Received report from day shift nurse Debbie. Pt is resting in bed with the bed alarm on and call light within reach. Pt is on ABX's at this time and no other drips. Pt's vitals are stable at this time. Pt is currently on 4 L of O2 via NC and does not look in distress at this time. Will continue with pt care.
--- NOTE | 2023-09-27 19:33 | NUR ---
All patients home meds given back to patients father and he took meds home.
[2023-09-27] MEDS ORDERED: Sodium Bicarbonate 8.4% 50 MEQ/50 ML SYRINGE IV ONE (22:00)
[2023-09-27] MEDS ORDERED: Heparin 5,000 UNITS/ML 1 ML VIAL SQ SCH (22:38)
[2023-09-28] VITALS: BP 141/70; PULSE 91; TEMP 99.3
[2023-09-28 04:00] VITALS: BP 148/76; PULSE 90; TEMP 99.1
--- NOTE | 2023-09-28 06:32 | NUR ---
Pt had an uneventful night. Pt had some periods of nausea/vomiting and meds were given per EMAR. Pt denies pain throughout the night. Pt's vitals were stable throughout the night. Pt is currently getting some ABX and no other drips are running at this time. Pt slept most of the night. Pt was taken to CT at the beginning of the shift. Pt is currently sleeping in bed with the bed alarms on and call light within reach. Will give report to day shift nurse.
--- NOTE | 2023-09-28 07:00 | NUR ---
Report received from ALLEN Sesay. Reviewed overnight events. Pt remains off all drips at this time. Pt resting in bed with eyes closed. Bed alarm activated. Call light within reach. Will continue with POC.
[2023-09-28 08:00] VITALS: BP 176/100; PULSE 93; TEMP 99.5
[2023-09-28] MEDS ORDERED: Pantoprazole 40 MG in NS 10 ML IV SCH (09:00)
[2023-09-28] MEDS ORDERED: Insulin Glargine-ygfn (Lantus) SQ SCH ×2 (09:00→21:00)
[2023-09-28] MEDS ORDERED: Insulin Glargine-ygfn (Lantus) SQ ONE (11:45)
[2023-09-28 12:00] VITALS: BP 161/95; PULSE 85; TEMP 98.5
[2023-09-28] MEDS ORDERED: Insulin Lispro (HumaLOG) SQ SCH ×2 (12:00)
--- NOTE | 2023-09-28 12:41 | NUR ---
Dialysis Note Pt dialysis tx in ICU. uf goal was set for 3.5 and increased to 4.0 kg d/t HTN. pt tolerated tx well. Report given to primary RN.
--- NOTE | 2023-09-28 13:32 | NUR ---
Dishcarge orders wrtten by Dr. Hernandez. Verbal orders received to continue all home medications. Left Femoral line discontinued. Catheter tip intact. Pressure applied and gauze and tegaderm in place. Pt tolertated procedure well.
--- NOTE | 2023-09-28 13:50 | NUR ---
construction worker met with patient to discuss discharge planning. Patient is currently living with her parents in [place]. Points of contact - Jovi (father) P# [phone] and Romero (mother) P# [phone]. PCP is Leidy Basurto, Pharmacy is [facility] [address]. Insurance is [employer], no issues affording medications. No DPOA-HC and not interested in completing one. No DME and reports to be independent with ADLS> Patient stated she is on dialysis and goes to [facility] Monday, and Monday at 5:45 am. SW discussed transportation. Patient stated she does not drive as her vision is not great right now, so her parents drive her. Patient would like to return home at time of discharge. SW spoke with Jovi, patient's father, to update him and confirm information. All information above is accurate. SW asked if patient had applied for disability since she has been on dialysis for approximately one year. Jovi stated he took her to social security and filled everything out but to his knowledge they have not made a decision yet. SW met with patient and she confirmed she filled out the information for social security but they have not come to a decision yet. SW expressed she should follow up with them because she should qualify for Medicare as she is on dialysis and social security would be the ones to assist with this. Patient stated she would follow up. Discharge plan: Home
--- NOTE | 2023-09-28 14:16 | NUR ---
Discharge orders reviewed. Pt verbalized understanding. Stressed importance of calling Dr. Hernandez's office to schedule follow up appoinment. Pt verbalized understanding. Pt escorted out, dad picking pt up to take home.
[2023-11-08] MEDS ORDERED: PRINIVIL40 MG PO (10:16)
[2023-11-08] MEDS ORDERED: PROTONIX 40MG T40 MG PO (10:17)
[2023-11-08] MEDS ORDERED: IMDUR 60MG60 MG/TAB PO (10:18)
[2023-11-08] MEDS ORDERED: NORVASC 10MG10 MG PO (10:19)
[2023-11-08] MEDS ORDERED: PHOSLO667 MG PO (10:22)
[2023-11-08] MEDS ORDERED: FLONASEALLERGY NS (10:22)
[2023-11-08] MEDS ORDERED: STOOL SOFTENER100 M2 PO (10:23)
== END 2023-09-28 14:14 | disposition home or self-care (01) ==
LOC: IMCU 13:32 → ICU 14:22 → IMCU 14:22 → ICU 14:23
PROVIDERS: ADMIT Internal Medicine Interventional Cardiology
DX: I13.2 Hypertensive heart and chronic kidney disease with heart failure and with stage 5 chronic kidney disease, or end stage renal disease (principal); N18.6 End stage renal disease; I87.2 Venous insufficiency (chronic) (peripheral); R11.2 Nausea with vomiting, unspecified; R19.7 Diarrhea, unspecified; R41.82 Altered mental status, unspecified; I25.10 Atherosclerotic heart disease of native coronary artery without angina pectoris; E10.22 Type 1 diabetes mellitus with diabetic chronic kidney disease; E10.319 Type 1 diabetes mellitus with unspecified diabetic retinopathy without macular edema; I50.20 Unspecified systolic (congestive) heart failure; I16.0 Hypertensive urgency; G93.40 Encephalopathy, unspecified; E10.65 Type 1 diabetes mellitus with hyperglycemia; R94.31 Abnormal electrocardiogram [ECG] [EKG]; K22.10 Ulcer of esophagus without bleeding; I47.10 Supraventricular tachycardia, unspecified; J39.8 Other specified diseases of upper respiratory tract; Z99.2 Dependence on renal dialysis; Z95.5 Presence of coronary angioplasty implant and graft; Z79.82 Long term (current) use of aspirin; Z79.02 Long term (current) use of antithrombotics/antiplatelets; Z79.899 Other long term (current) drug therapy
CPT/HCPCS: C9113; G0378; G0379; J0360; J0780; J1644; J1815; J2020; J2060; J2305; J2404; J2405; J2543

== ENCOUNTER 2024-01-08 21:09 | Inpatient (IN) | payer BC, MEDICARE ==
[~2024-01-08] VITALS: Ht 165.1 cm; Wt 71.2 kg
[~2024-01-08 21:09] MED LIST changes: +CATAPRES 0.1MG0.1 MG PO; +FLONASEALLERGY NS; +GLUCOSE TABLETS CHEW; +IMDUR 60MG60 MG/TAB PO; +PRINIVIL40 MG PO; +STOOL SOFTENER100 M2 PO
[2024-01-08 21:45] LABS: BASO # 0.1 K/mm3 (0.0-0.2); BASO % 0.8 % (0.0-2.0); EOS # 0.3 K/mm3 (0.0-0.7); EOS % 3.1 % (0.0-4.0); GRAN # 8.4 K/mm3 (1.4-6.5); GRAN % 76.4 % (42.2-75.2); LYMPH # 1.6 K/mm3 (1.2-3.4); LYMPH % 14.5 % (20.0-51.0); MEAN CELL VOLUME 95 fl (80.0-100.0); MEAN CORPUSCULAR HGB CONC 33 g/dl (33.0-37.0); MEAN PLATELET VOLUME 10.2 fl (7.4-10.4); MONO # 0.5 K/mm3 (0.1-0.6); MONO % 4.7 % (1.7-9.3); PLATELET COUNT 231 K/mm3 (130-400); RED BLOOD COUNT 2.71 M/mm3 (4.10-5.30); REDCELL DISTRIBUTION WIDTH-CV 12.7 % (11.5-14.5)
[2024-01-08 21:52] LABS: HEMATOCRIT 25.6 % (37.0-47.0); HEMOGLOBIN 8.5 g/dl (12.5-16.0); MEAN CORPUSCULAR HEMOGLOBIN 31 pg (27-31)
[2024-01-08 22:02] LABS: ALBUMIN 4.2 g/dL (3.5-5.0); BILIRUBIN,TOTAL 0.7 mg/dL (0.2-1.2); CALCIUM 10.3 mg/dL (8.4-10.2); CREATININE, serum 11.44 mg/dL (0.57-1.11); MAGNESIUM 2.7 mg/dL (1.6-2.6); POTASSIUM 5.5 mEq/L (3.5-4.5); TOTAL PROTEIN 7.4 g/dl (6.2-8.1)
[2024-01-08 22:08] LABS: TROPONIN-I 0.022 ng/mL (0.00-0.033)
[2024-01-08] MEDS ORDERED: Ondansetron 4 MG/2 ML VIAL IV ONE (23:15)
[2024-01-09] MEDS ORDERED: Insulin Regular Human (NovoLIN R/HumuLIN R) IV ONE ×2 (00:45→03:00)
[2024-01-09] MEDS ORDERED: Promethazine 50 MG/ML 1 ML VIAL IM ONE (00:45)
[2024-01-09] MEDS ORDERED: amLODIPine 10 MG TAB PO SCH ×2 (01:06→05:40)
[2024-01-09] MEDS ORDERED: Dextrose (Glucose) 15 GM (4 x 3.75 GM) Chewable TABLET PACK PO PRN (01:15)
[2024-01-09] MEDS ORDERED: Dextrose 50% Water 25 GM/50 ML SYRINGE IV PRN (01:15)
[2024-01-09] MEDS ORDERED: Ondansetron 4 MG/2 ML VIAL IV PRN (01:15)
[2024-01-09] MEDS ORDERED: hydrALAZINE 20 MG/ML 1 ML VIAL IV ONE (01:15)
[2024-01-09] MEDS ORDERED: Glucagon 1 MG VIAL IM PRN (01:15)
[2024-01-09] MEDS ORDERED: Insulin Lispro (HumaLOG) SQ SCH (06:00)
[2024-01-09] MEDS ORDERED: LASIX 40MG TABL40 MG PO (07:19)
[2024-01-09] MEDS ORDERED: Heparin 5,000 UNITS/ML 1 ML VIAL SQ SCH (08:00)
[2024-01-09] MEDS ORDERED: Furosemide 80 MG TAB PO SCH (09:00)
[2024-01-09 09:03] LABS: CALCIUM 9.9 mg/dL (8.4-10.2); CREATININE, serum 12.58 mg/dL (0.57-1.11); POTASSIUM 5.1 mEq/L (3.5-4.5)
[2024-01-09 09:15] VITALS: BP 172/92; PULSE 90; TEMP 98.4
--- NOTE | 2024-01-09 10:29 | NUR ---
Patient ih having issues with SOB and fluid overload. At this time, blood sugars are elevated and electrolytes are out of range, but patient states this is a common issue when she gets sick and pre-dialysis. VSS, afebrile.
[2024-01-09 12:00] VITALS: BP 183/100; PULSE 89; TEMP 97.8
[2024-01-09] MEDS ORDERED: Heparin 1,000 UNITS/ML 10 ML Multi-Dose VIAL IV SCH ×2 (12:30→16:45)
[2024-01-09] MEDS ORDERED: Heparin 1,000 UNITS/ML 10 ML Multi-Dose VIAL ICA SCH (12:30)
--- NOTE | 2024-01-09 13:04 | NUR ---
SW met with patient to complete initial assessment for discharge planning. Patient verified that she lives with her parents and brother in [place]. Patient denies having a DPOA assigned but stated that her father, Jovi Alberts ([phone]) and mother Romero Alberts ([phone]) would make decisions for her. Patient sees Leidy Basurto APRN as her PCP and uses [facility] pharmacy. Patient denies having any DME and does not drive. Patient is on hemodialysis on //Monday schedule with 0530 chair time at [facility]. Patient is covered by BCBS and Medicare A&B insurances. Patient plans to return home with parents at discharge. Discharge plan: Home
--- NOTE | 2024-01-09 14:09 | NUR ---
REPORT FROM [facility] ICU.
--- NOTE | 2024-01-09 14:10 | NUR ---
Report was given to Garcia Mcmahon for medical room 351. Currently patient is running in dialysis per Dr. Shaw's order. There is an concern with her blood sugars. Patient states that before dialysis, she runs very hyperglycemic, confirmed by her Dad, Jovi, that sugars can be 350-400 then down to 50s. Therefore, consulting with Garcia, we will hold the insulin and reevaluate after dialysis. We don't want to have rebound hyperglycemia or hypoglycemia.
[2024-01-09] MEDS ORDERED: Atorvastatin 80 MG TAB PO SCH (21:00)
[2024-01-09] MEDS ORDERED: Clopidogrel 75 MG TAB PO SCH (21:00)
[2024-01-09] MEDS ORDERED: Loratadine 10 MG TAB PO SCH (21:00)
[2024-01-09] MEDS ORDERED: cloNIDine 0.1 MG TAB PO SCH (21:00)
[2024-01-09] MEDS ORDERED: Isosorbide Mononitrate CR (24-HR) 60 MG TAB PO SCH (21:00)
[2024-01-09] MEDS ORDERED: Insulin Glargine-ygfn (Lantus) SQ SCH (21:00)
[2024-01-09 21:12] VITALS: BP 166/76; PULSE 88; TEMP 99
--- NOTE | 2024-01-09 22:42 | NUR ---
PATIENT RESTING IN BED WITH EYES CLOSED, EASILY ROUSED. DENIES PAIN AT THIS TIME. ALSO DENIES ANY SHORTNESS OF BREATH OR CHEST PAIN. CALL LIGHT WITHIN REACH. BED IS LOCKED AND IN LOW POSITION
[2024-01-09 23:55] VITALS: BP 97/55; PULSE 80
[2024-01-10 04:22] VITALS: BP 119/65; PULSE 75; TEMP 98
--- NOTE | 2024-01-10 04:39 | NUR ---
PATIENT CALLED REQUESTING TO HAVE BLOOD SUGAR CHECKED HER DEXCOM TOLD HER SHE WAS GOOING LOW. PCT CHECKED BLOOD SUGAR LEVEL WHICH WAS 64. DEXTROSE TABLETS GIVEN. WILL RECHECK GLUCOSE LEVEL IN 15 MINUTES.
--- NOTE | 2024-01-10 05:08 | NUR ---
BLOOD GLUCOSE RECHECK IS 119.
--- NOTE | 2024-01-10 06:29 | NUR ---
PATIENT CALLED STATING SHE WAS GOING LOW AGAIN WITH HER BLOOD SUGAR PER HER DEXCOM. CHECKED GLUCOSE WITH FINGERSTICK AND READING WAS 74. GAVE PATIENT ORANGE JUICE AND ADVISED TO ORDER BREAKFAST SOON SHE IS ABLE TO AT 0630.
[2024-01-10 06:59] LABS: BASO % 0.5 % (0.0-2.0); EOS # 0.1 K/mm3 (0.0-0.7); GRAN # 5.6 K/mm3 (1.4-6.5); GRAN % 64.2 % (42.2-75.2); LYMPH # 2.3 K/mm3 (1.2-3.4); LYMPH % 26.6 % (20.0-51.0); MEAN CELL VOLUME 95 fl (80.0-100.0); MEAN CORPUSCULAR HGB CONC 33 g/dl (33.0-37.0); MEAN PLATELET VOLUME 10.5 fl (7.4-10.4); MONO # 0.7 K/mm3 (0.1-0.6); MONO % 7.5 % (1.7-9.3); PLATELET COUNT 246 K/mm3 (130-400); RED BLOOD COUNT 2.55 M/mm3 (4.10-5.30); REDCELL DISTRIBUTION WIDTH-CV 13.1 % (11.5-14.5)
[2024-01-10 07:01] LABS: HEMATOCRIT 24.2 % (37.0-47.0); HEMOGLOBIN 7.9 g/dl (12.5-16.0); MEAN CORPUSCULAR HEMOGLOBIN 31 pg (27-31)
[2024-01-10 07:08] LABS: CALCIUM 9.3 mg/dL (8.4-10.2); CREATININE, serum 8.34 mg/dL (0.57-1.11)
[2024-01-10 07:16] VITALS: BP 123/77; PULSE 75; TEMP 98.7
--- NOTE | 2024-01-10 08:30 | NUR ---
Patient resting in bed, alert and oriented x 4, VSS. denies any pain or discomfort. To be taken for dialisis. Assessment completed, meds given. No further needs at this time. Call light within reach.
[2024-01-10] MEDS ORDERED: Influenza Virus Vaccine, Trivalent '24-25 0.5 ML SYRINGE IM SCH (09:00)
[2024-01-10 10:55] VITALS: BP 158/83; PULSE 83
--- NOTE | 2024-01-10 11:44 | NUR ---
Dialysis note Pt arrived via WC uf goal set for 2.5 and increased to 3.0 as bp allowed. Uf goal of 3.0 kg removed. Pt tolerated tx well and dcd back to room via WC
[2024-01-10 12:47] LABS: COLLECTION METHOD CLEAN CATCH
[2024-01-10 12:54] LABS: PH 5.5 (5.0-8.5); URINE APPEARANCE CLOUDY (CLEAR/HAZY); URINE BLOOD 1+ (NEGATIVE); URINE COLOR YELLOW (YELLOW); URINE GLUCOSE 3+ (NEGATIVE); URINE KETONE 1+ (NEGATIVE); URINE NITRATE NEGATIVE (NEGATIVE); URINE PROTEIN(semi-quant) 4+ (NEGATIVE); URINE UROBILINOGEN 0.2 E.U/dL (0.2-1.0)
[2024-01-10 13:11] LABS: TRICYCLIC ANTIDEPRESS URINE NEGATIVE (NEGATIVE)
[2024-01-10 13:12] LABS: SQUAMOUS EPITHELIAL 20-50 /hpf (0-10); URINE BACTERIA MANY /hpf (NONE SEEN)
--- NOTE | 2024-01-10 14:18 | NUR ---
nuclear worker technician attended clinical rounding and was informed pt can discharge today. RT completed ex-ox and pt does not need oxygen. She is already a scheduled diaylsis patient. Discharge Plan: home
--- NOTE | 2024-01-10 14:20 | NUR ---
Patient was provided with discharge information, all questions answered. IV acces was discontinued.
== END 2024-01-10 15:30 | disposition home or self-care (01) | DRG 637 ==
LOC: COL.ER 21:09 → MEDICAL 01-09 01:04 → ICU 01-09 01:04 → MEDICAL 01-09 14:28
PROVIDERS: Emergency Medicine; Physician Assistant; ADMIT Internal Medicine
PROC: 5A1D70Z Performance of Urinary Filtration, Intermittent, Less than 6 Hours Per Day (ICD-10-PCS; principal; 2024-01-09)
DX: E10.65 Type 1 diabetes mellitus with hyperglycemia (principal); J96.01 Acute respiratory failure with hypoxia; N18.6 End stage renal disease; E87.70 Fluid overload, unspecified; E10.22 Type 1 diabetes mellitus with diabetic chronic kidney disease; U09.9 Post COVID-19 condition, unspecified; R91.8 Other nonspecific abnormal finding of lung field; E87.5 Hyperkalemia; D63.8 Anemia in other chronic diseases classified elsewhere; Z99.2 Dependence on renal dialysis; Z87.891 Personal history of nicotine dependence; I25.2 Old myocardial infarction; Z88.8 Allergy status to other drugs, medicaments and biological substances; Z95.5 Presence of coronary angioplasty implant and graft; Z90.49 Acquired absence of other specified parts of digestive tract; Z79.82 Long term (current) use of aspirin; Z79.4 Long term (current) use of insulin; Z79.02 Long term (current) use of antithrombotics/antiplatelets; Z79.899 Other long term (current) drug therapy
CPT/HCPCS: J0360; J0780; J1644; J1815; J2405; Q3014

== ENCOUNTER 2024-02-12 06:30 | Inpatient (IN) | payer BC, MEDICARE ==
[2024-02-12] VITALS (626 sets, daily range): BP systolic 148–177; BP diastolic 76–106; PULSE 84–90; TEMP 96.8–99.2; O2SAT 80–100
[~2024-02-12] VITALS: Ht 165.1 cm; Wt 75.3 kg
[~2024-02-12 06:30] MED LIST changes: +PHOS LO PO
[2024-02-12] MEDS ORDERED: Ondansetron 4 MG/2 ML VIAL IV ONE (07:00)
[2024-02-12 07:27] LABS: BASO # 0.1 K/mm3 (0.0-0.2); BASO % 0.7 % (0.0-2.0); EOS % 0.2 % (0.0-4.0); GRAN # 10.1 K/mm3 (1.4-6.5); GRAN % 88.2 % (42.2-75.2); LYMPH # 0.9 K/mm3 (1.2-3.4); LYMPH % 7.8 % (20.0-51.0); MEAN CELL VOLUME 101 fl (80.0-100.0); MEAN CORPUSCULAR HGB CONC 32 g/dl (33.0-37.0); MONO # 0.3 K/mm3 (0.1-0.6); MONO % 2.7 % (1.7-9.3); PLATELET COUNT 230 K/mm3 (130-400); RED BLOOD COUNT 2.81 M/mm3 (4.10-5.30); REDCELL DISTRIBUTION WIDTH-CV 13.4 % (11.5-14.5)
[2024-02-12 07:30] LABS: HEMATOCRIT 28.3 % (37.0-47.0); MEAN CORPUSCULAR HEMOGLOBIN 32 pg (27-31)
[2024-02-12 07:32] LABS: COLLECTION METHOD CLEAN CATCH
[2024-02-12 07:41] LABS: URINE APPEARANCE CLEAR (CLEAR/HAZY); URINE BLOOD 2+ (NEGATIVE); URINE COLOR YELLOW (YELLOW); URINE GLUCOSE 3+ (NEGATIVE); URINE KETONE 1+ (NEGATIVE); URINE NITRATE NEGATIVE (NEGATIVE); URINE PROTEIN(semi-quant) 4+ (NEGATIVE); URINE UROBILINOGEN 0.2 E.U/dL (0.2-1.0)
[2024-02-12 07:44] LABS: ALBUMIN 4.1 g/dL (3.5-5.0); BILIRUBIN,TOTAL 0.6 mg/dL (0.2-1.2); CALCIUM 9.5 mg/dL (8.4-10.2); CREATININE, serum 10.92 mg/dL (0.57-1.11); TOTAL PROTEIN 7.1 g/dl (6.2-8.1)
[2024-02-12] MEDS ORDERED: Midazolam 2 MG/2 ML VIAL IV ONE (07:45)
[2024-02-12 07:47] LABS: POTASSIUM 6.5 mEq/L (3.5-4.5)
[2024-02-12 07:52] LABS: TROPONIN-I 0.247 ng/mL (0.00-0.033)
[2024-02-12] MEDS ORDERED: Sodium Bicarbonate 8.4% 50 MEQ/50 ML SYRINGE IV ONE (08:00)
[2024-02-12] MEDS ORDERED: Insulin Human Regular/NS 100 ML IV ONE (08:00)
[2024-02-12] MEDS ORDERED: D5 1/2 NS 1,000 ML IV SCH (08:15)
[2024-02-12] MEDS ORDERED: Insulin Human Regular/NS 100 ML IV SCH (08:15)
[2024-02-12] MEDS ORDERED: droPERidol 2.5 MG/ML 2 ML VIAL IV ONE (08:30)
[2024-02-12] MEDS ORDERED: Heparin 1,000 UNITS/ML 10 ML Multi-Dose VIAL IV SCH ×2 (10:00→10:30)
--- NOTE | 2024-02-12 10:15 | NUR ---
PATIENT ARRIVED TO ICU ON STRETCHER FROM THE ED. PATIENT HAS INSULIN RUNNING AT 6 UNITS PER HOUR VIA RIGHT FEMORAL. BUSH CATHETER IN PLACE. PATIENT IS A0X4. BIPAP IN PLACE. PATIENT IN POSESSION OF CELL PHONE AND PERSONAL BELONGINGS.
[2024-02-12 11:01] LABS: CALCIUM 9.3 mg/dL (8.4-10.2); CREATININE, serum 10.94 mg/dL (0.57-1.11); MAGNESIUM 2.1 mg/dL (1.6-2.6); POTASSIUM 5.5 mEq/L (3.5-4.5)
[2024-02-12 14:35] LABS: CALCIUM 10.3 mg/dL (8.4-10.2); CREATININE, serum 4.51 mg/dL (0.57-1.11); POTASSIUM 4.2 mEq/L (3.5-4.5)
--- NOTE | 2024-02-12 14:49 | NUR ---
Dialysis Note Pt running in ICU. Uf goal set for 3.0 kg and increased to 4.0. Pt tolerated tx well. Pt denies questions or concerns. Report given to Primary RN Deedee Rodgers
[2024-02-12] MEDS ORDERED: Polyethylene Glycol 3350 17 GM PDS PO PRN (18:30)
[2024-02-12 18:33] LABS: CALCIUM 10.1 mg/dL (8.4-10.2); CREATININE, serum 6.05 mg/dL (0.57-1.11); POTASSIUM 5.1 mEq/L (3.5-4.5)
[2024-02-12] MEDS ORDERED: Atorvastatin 80 MG TAB PO SCH (21:00)
[2024-02-12] MEDS ORDERED: Loratadine 10 MG TAB PO SCH (21:00)
[2024-02-12] MEDS ORDERED: amLODIPine 10 MG TAB PO SCH (21:00)
[2024-02-12] MEDS ORDERED: Clopidogrel 75 MG TAB PO SCH (21:00)
[2024-02-12] MEDS ORDERED: cloNIDine 0.1 MG TAB PO SCH (21:00)
[2024-02-12] MEDS ORDERED: Lisinopril 20 MG TAB PO SCH (21:00)
[2024-02-12] MEDS ORDERED: Isosorbide Mononitrate CR (24-HR) 60 MG TAB PO SCH (21:00)
[2024-02-12] MEDS ORDERED: Fluticasone Nasal 50 MCG/Spray 16 GM BOTTLE NS SCH (21:00)
[2024-02-12] MEDS ORDERED: Furosemide 80 MG TAB PO SCH (21:00)
[2024-02-12 22:58] LABS: CALCIUM 9.6 mg/dL (8.4-10.2); CREATININE, serum 6.74 mg/dL (0.57-1.11); POTASSIUM 5.3 mEq/L (3.5-4.5)
--- NOTE | 2024-02-12 23:17 | NUR ---
RT called by RN stating that bipap was alarming. This RT went to assess the patient and Bipap machine. Leak was noted to be 84, with low tidal volumes. Mask adjusted and tightened. Ipap increased to 12. Tidal volumes improved with the increase of the Ipap to 12.
[2024-02-13] VITALS (702 sets, daily range): BP systolic 112–175; BP diastolic 67–92; PULSE 78–84; TEMP 98.2–99.2; O2SAT 83–100
--- NOTE | 2024-02-13 00:25 | NUR ---
RT called to bedside by RN. Bipap continuously alarming. Mask readjusted, patient requested to be taken off for the night. Currently on 5L NC 98%. Weaning O2 as tolerated.
[2024-02-13 02:31] LABS: CALCIUM 9.4 mg/dL (8.4-10.2); CREATININE, serum 7.02 mg/dL (0.57-1.11); POTASSIUM 5.5 mEq/L (3.5-4.5)
[2024-02-13 05:23] LABS: BASO # 0.1 K/mm3 (0.0-0.2); BASO % 0.6 % (0.0-2.0); EOS # 0.1 K/mm3 (0.0-0.7); EOS % 0.7 % (0.0-4.0); GRAN # 8.8 K/mm3 (1.4-6.5); GRAN % 75.8 % (42.2-75.2); LYMPH % 17.2 % (20.0-51.0); MEAN CELL VOLUME 97 fl (80.0-100.0); MEAN CORPUSCULAR HGB CONC 33 g/dl (33.0-37.0); MEAN PLATELET VOLUME 9.7 fl (7.4-10.4); MONO # 0.6 K/mm3 (0.1-0.6); MONO % 5.4 % (1.7-9.3); PLATELET COUNT 233 K/mm3 (130-400); RED BLOOD COUNT 2.61 M/mm3 (4.10-5.30); REDCELL DISTRIBUTION WIDTH-CV 13.4 % (11.5-14.5)
[2024-02-13 05:27] LABS: HEMATOCRIT 25.2 % (37.0-47.0); HEMOGLOBIN 8.4 g/dl (12.5-16.0); MEAN CORPUSCULAR HEMOGLOBIN 32 pg (27-31)
[2024-02-13 05:49] LABS: CALCIUM 9.5 mg/dL (8.4-10.2); CREATININE, serum 7.4 mg/dL (0.57-1.11)
[2024-02-13] MEDS ORDERED: Dextrose 50% Water 25 GM/50 ML SYRINGE IV PRN (07:15)
[2024-02-13] MEDS ORDERED: Glucagon 1 MG VIAL IM PRN (07:15)
[2024-02-13] MEDS ORDERED: Dextrose (Glucose) 15 GM (4 x 3.75 GM) Chewable TABLET PACK PO PRN (07:15)
[2024-02-13] MEDS ORDERED: Calcium Acetate 667 MG TAB/CAP PO SCH (08:00)
[2024-02-13] MEDS ORDERED: Insulin Glargine-ygfn (Lantus) SQ SCH ×2 (10:16→21:00)
--- NOTE | 2024-02-13 10:24 | NUR ---
PT IS SLEEPING IN THE BED. SHE IS ALERT AND ORIENTED. HAS A BUSH CATHETER. HAS AN INSULIN DRIP INFUSING IN A FEMORAL CENTRAL LINE. SHE IS ALSO RECEIVING HEMO DIALYSIS AT THIS TIME. SHE REMAINS ON Q1HR BLOOD SUGAR CHECKS. SHE IS ON 3L NC. SHE HAS HER PHONE AT THE BEDSIDE. HER DIALYSIS SITE IS A LEFT AV FISTULA.
[2024-02-13] MEDS ORDERED: Insulin Lispro (HumaLOG) SQ SCH (12:00)
--- NOTE | 2024-02-13 12:00 | NUR ---
BUSH OUT AT 1200. PT TOLERATED IT WELL.
--- NOTE | 2024-02-13 12:04 | NUR ---
Vest Baster met with patient to discuss discharge planning. Patient stated she currently lives with her parents, Jovi (ph#[phone]) and Romero (ph#[phone]) in [place] and advised she has lived with them since starting dialysis in June of 2022. Patient gets dialysis at [facility] on and advised her dad provides transportation and she does not see well in the dark. Patient is able to drive and advised she normally picks up her own medications at [facility] on [address]. Patient sees Leidy Basurto APRN for primary care. Patient does not normally use any DME and is not on oxygen at baseline. Patient reported independence with ADLS and stated she plans to return home at time of discharge. Patient does not have DPOA-HC completed and did not wish to do one at this time. Patient is not and does not have children. Her parents are legal next of kin. Discharge Plan: Home
--- NOTE | 2024-02-13 17:06 | NUR ---
PT TAKEN TO 305 VIA A WHEELCHAIR. SHE HAD ALL BELONGINGS WITH HER. THE BED WAS TOSSED BEFORE WE LEFT THE ROOM TO MAKE SURE SHE HAD EVERYTHING. SHE CONTINUES TO BE ON 2L NC. SHE HAS A LEFT FOREARM AV VISTULA, A LEFT FEMORAL CENTRAL LINE WITH NOTHING INFUSING AND THE FISTULA WITH GAUZE IN PLACE.
--- NOTE | 2024-02-13 17:37 | NUR ---
Patient up to medical unit from ICU - pt awake, alert and oriented. Denies pain, nausea. C/O discomfort at femoral central line site and shortness of breath on exertion. 2L NC in place. AV fistula to left forearm. Pt states she has very little output normally - moss was removed earlier today. Mother at bedside, food tray delievered to room, denies further needs at this time. Bed in lowest position with call light within reach.
[2024-02-13] MEDS ORDERED: HEPARIN SODIUM SQ SCH (21:00)
--- NOTE | 2024-02-13 21:00 | NUR ---
Initial shift assessment done-- VSS, on just 1 L/o2, sats 98-100% at this time, no requests, hopes to get some sleep, blood sugar was 181- did take the lanyus as ordered but refused the short acting insulin {states she will go too low tonight} did give a HS snack also. Hoping to go home tomorrow after dialysis ? may not even need dialysis so we shall see what the labs are per inspector wreath.
[2024-02-14 03:09] VITALS: BP 129/76; PULSE 73; TEMP 98.1
--- NOTE | 2024-02-14 05:23 | NUR ---
Quiet night-- has been sleeping well
--- NOTE | 2024-02-14 06:44 | NUR ---
Dr. Munson notified of Blood sugar of 439, order to just follow the sliding scale at this time with the 14 units short acting-
[2024-02-14 06:50] LABS: CALCIUM 8.7 mg/dL (8.4-10.2); CREATININE, serum 8.02 mg/dL (0.57-1.11); MAGNESIUM 2.1 mg/dL (1.6-2.6); POTASSIUM 5.6 mEq/L (3.5-4.5)
[2024-02-14 07:04] LABS: TROPONIN-I 3.005 ng/mL (0.00-0.033)
[2024-02-14 07:14] LABS: BASO % 0.6 % (0.0-2.0); EOS # 0.2 K/mm3 (0.0-0.7); EOS % 3.6 % (0.0-4.0); GRAN # 4.4 K/mm3 (1.4-6.5); GRAN % 65.3 % (42.2-75.2); LYMPH # 1.6 K/mm3 (1.2-3.4); LYMPH % 23.4 % (20.0-51.0); MEAN CELL VOLUME 94 fl (80.0-100.0); MEAN CORPUSCULAR HGB CONC 34 g/dl (33.0-37.0); MEAN PLATELET VOLUME 10.2 fl (7.4-10.4); MONO # 0.5 K/mm3 (0.1-0.6); MONO % 6.7 % (1.7-9.3); PLATELET COUNT 205 K/mm3 (130-400); REDCELL DISTRIBUTION WIDTH-CV 13.2 % (11.5-14.5)
[2024-02-14 07:15] LABS: HEMATOCRIT 23.5 % (37.0-47.0); MEAN CORPUSCULAR HEMOGLOBIN 32 pg (27-31)
[2024-02-14 07:19] VITALS: BP 155/80; PULSE 76; TEMP 98.4
--- NOTE | 2024-02-14 07:52 | NUR ---
Call placed to Dr. Munson to report troponin 3.005. VS with HTN, no symptoms. Patient alert and oriented. No further orders. curtain roller assembler, Yajaira reported BG over 400, previously to Dr. Munson. Insulin provided per sliding scale. Continue monitoring.
--- NOTE | 2024-02-14 09:00 | NUR ---
Patient resting in bed, alert and oriented x4, VSS. Denies any pain or discomfort. She ate breakfast and had coffee. Continue monitoring glucose levels. Assessment completed, Medications to be given by student nurse. No further needs at this time. Call light within reach.
[2024-02-14] MEDS ORDERED: Insulin Glargine-ygfn (Lantus) SQ ONE (10:15)
[2024-02-14 11:14] VITALS: BP 152/86; PULSE 81; TEMP 98.3
[2024-02-14] MEDS ORDERED: Sodium Zirconium Cyclosilicate for Oral Susp 10 GM PACKET PO ONE (12:15)
[2024-02-14 15:24] VITALS: BP 153/88; PULSE 78; TEMP 98.7
--- NOTE | 2024-02-14 16:41 | NUR ---
Patient resting in bed, watching TV. Worried about her BG 77 some orange juice provided. PT will receive dinner tray soon.
--- NOTE | 2024-02-14 18:35 | NUR ---
Patient has been stable along the day, aware of stresstest tomorrow and been NPO after MDN. We continue monitoring BG levels. Report will be given to night RN.
[2024-02-14] MEDS ORDERED: Heparin 1,000 UNITS/ML 10 ML Multi-Dose VIAL IV SCH (19:15)
[2024-02-14 19:19] VITALS: BP 189/88; PULSE 88; TEMP 98.4
--- NOTE | 2024-02-14 19:41 | NUR ---
CALL PLACED TO [facility]. PATIENT WITH HYPERKALEMIA, ELEVATED TRPONINS WITH SCHEDULED EMILY-NO TELE IN PLACE. TORB TO INITIATE TELEMETRY PROTOCOL GIVEN. CALL PLACED TO TELE AND RT. PATIENT EDUCATION PROVIDED. ALSO Q4H BG CHECKS REQUESTED FOR PATIENT Hx OF DKA AND DMI AND DMII WITH SENSITIVE BG. TORB TO INITIATE Q4HR BG ACCUCHECKS GIVEN.
--- NOTE | 2024-02-14 20:37 | NUR ---
UPON SHIFT ASSESSMENT, PATIENT WAS AWAKE IN BED AND AXO X4. RT FEMORAL CENTRAL LINE FLUSHING (TRIPLE LUMEN), BUT WITH BLOOD RETURN ONLY THROUGH WHITE LUMEN. PATIENT BG 277 AND BP 189/88. 8 UNITS SLIDING SCALE INSULIN ADMINISTERED AND 21:00 MED PASS GIVEN TO ADDRESS HTN-CATAPRES. PATIENT DENIES CHEST PAIN OR SOA. CALL LIGHT WITHIN REACH.
[2024-02-14] MEDS ORDERED: Insulin Glargine-ygfn (Lantus) SQ SCH (21:00)
[2024-02-14 23:15] VITALS: BP 166/83; PULSE 80; TEMP 98.2
[2024-02-15] VITALS (8 sets, daily range): BP systolic 136–199; BP diastolic 69–118; PULSE 64–78; TEMP 97.5–99.5
[2024-02-15 06:32] LABS: BASO % 0.6 % (0.0-2.0); EOS # 0.5 K/mm3 (0.0-0.7); EOS % 7.7 % (0.0-4.0); GRAN # 3.8 K/mm3 (1.4-6.5); LYMPH # 1.8 K/mm3 (1.2-3.4); LYMPH % 27.5 % (20.0-51.0); MEAN CELL VOLUME 94 fl (80.0-100.0); MEAN CORPUSCULAR HGB CONC 34 g/dl (33.0-37.0); MEAN PLATELET VOLUME 10.2 fl (7.4-10.4); MONO # 0.5 K/mm3 (0.1-0.6); MONO % 6.9 % (1.7-9.3); PLATELET COUNT 197 K/mm3 (130-400); RED BLOOD COUNT 2.35 M/mm3 (4.10-5.30); REDCELL DISTRIBUTION WIDTH-CV 13.1 % (11.5-14.5)
[2024-02-15 06:33] LABS: HEMATOCRIT 22.1 % (37.0-47.0); HEMOGLOBIN 7.4 g/dl (12.5-16.0); MEAN CORPUSCULAR HEMOGLOBIN 31 pg (27-31)
[2024-02-15 06:50] LABS: CALCIUM 8.5 mg/dL (8.4-10.2); CREATININE, serum 10.23 mg/dL (0.57-1.11); POTASSIUM 5.2 mEq/L (3.5-4.5)
--- NOTE | 2024-02-15 09:56 | NUR ---
SW attended clinical rounds. Attending stating that patient is stable for discharge to home today. SW met with patient during dialysis to review Medicare IM form. Patient voiced understanding and agreement with discharge, signed form. Original on chart, copy to patient. Patient's family to transport home. Discharge plan: Home
--- NOTE | 2024-02-15 10:18 | NUR ---
Patient is currently in dialysis, she is waiting for a unit of blood PRBC. Wili was cancelled due to her just having a heart cath in September 2023. At this time she does not have any compliants.
[2024-02-15] MEDS ORDERED: CATAPRES 0.1MG0.1 MG PO (12:49)
[2024-02-15] MEDS ORDERED: NORVASC 10MG10 MG PO (12:49)
--- NOTE | 2024-02-15 14:29 | NUR ---
Dialysis note Uf goal started as 4.0 kg and increased to 5 kg. Pt tolerated tx well and recieved I unit of PRBC on tx. Pt dcd back to room without complaints
--- NOTE | 2024-02-15 14:45 | NUR ---
Discharge paperwork reviewed, education on managing sugars, diabetes, fluid intake, and keeping up dialysis appointments. She is aware of what she needs to do to manage her health issues. Femoral Central removed, sutures cut and catheter pulled, intact. Site is right femoral, pressure dressing applied and patient instructed to lay flat for 30 minutes. Called family and they are on their way to pick her up. Belongings gathered and escorted with patient at time of discharge.
== END 2024-02-15 15:10 | disposition home or self-care (01) | DRG 314 ==
LOC: COL.ER 06:30 → MEDICAL 08:01 → ICU 08:01 → MEDICAL 02-13 17:20
PROVIDERS: Emergency Medicine; Internal Medicine; Physician Assistant; ADMIT Internal Medicine
PROC: 06HY33Z Insertion of Infusion Device into Lower Vein, Percutaneous Approach (ICD-10-PCS; principal; 2024-02-12)
PROC: 5A1D70Z Performance of Urinary Filtration, Intermittent, Less than 6 Hours Per Day (ICD-10-PCS; 2024-02-12)
PROC: 5A09457 Assistance with Respiratory Ventilation, 24-96 Consecutive Hours, Continuous Positive Airway Pressure (ICD-10-PCS; 2024-02-12)
DX: T82.898A Other specified complication of vascular prosthetic devices, implants and grafts, initial encounter (principal); E10.10 Type 1 diabetes mellitus with ketoacidosis without coma; J96.01 Acute respiratory failure with hypoxia; N18.6 End stage renal disease; I13.2 Hypertensive heart and chronic kidney disease with heart failure and with stage 5 chronic kidney disease, or end stage renal disease; E87.5 Hyperkalemia; E87.70 Fluid overload, unspecified; D63.1 Anemia in chronic kidney disease; Z79.4 Long term (current) use of insulin; Z79.899 Other long term (current) drug therapy; Z99.2 Dependence on renal dialysis; Z79.82 Long term (current) use of aspirin; Z23 Encounter for immunization; R79.89 Other specified abnormal findings of blood chemistry; I50.9 Heart failure, unspecified; I25.10 Atherosclerotic heart disease of native coronary artery without angina pectoris; I65.22 Occlusion and stenosis of left carotid artery; Z95.5 Presence of coronary angioplasty implant and graft; Z79.01 Long term (current) use of anticoagulants; Z79.51 Long term (current) use of inhaled steroids; Z91.158 Patient's noncompliance with renal dialysis for other reason; Y84.1 Kidney dialysis as the cause of abnormal reaction of the patient, or of later complication, without mention of misadventure at the time of the procedure
CPT/HCPCS: A4314; A9270; C1751; J1644; J1790; J1815; J2250; J2405; P9016; Q3014

== ENCOUNTER 2024-02-15 17:58 | Emergency (ER) | payer MEDICARE, BC ==
[~2024-02-15] VITALS: Ht 165.1 cm; Wt 69.9 kg
[2024-02-15 18:05] VITALS: BP 112/77; TEMP 99.7
[2024-02-15 21:07] VITALS: PULSE 82
== END 2024-02-15 21:00 | disposition home or self-care (01) ==
LOC: COL.ER 17:58
DX: T82.838A Hemorrhage due to vascular prosthetic devices, implants and grafts, initial encounter (principal)